=== PATIENT | female | born 1955 | race Caucasian/White ===

== ENCOUNTER → 2016-12-02 | Outpatient (CLI) | payer OTHER ==
[~2016-12-02] MED LIST: ASPEC325 PO; ATEN-173 PO; BUPR150T5 PO; BUSP15TA70 PO; CALC-279 PO; CHOL1000 PO; CLR10 PO; CYAN500T PO; FAMC1TAB PO; GABA-113 PO; IPRA1AER2 INH; LORA-741 PO; METH500T37 PO; MULTTAB PO; OMEP20CA59 PO; OXYC-57 PO; QUET1TAB7 PO; ROPI0.25 PO; SERT1TAB68 PO; SULF800T23 PO; SUMA50TA15 PO; VERA240T20 PO
--- NOTE | 2016-12-02 16:20 | MAMMOGRAPHY REPORT ---
BILATERAL DIGITAL SCREENING MAMMOGRAM WITH CAD: 12/02/2016 CLINICAL HISTORY: Routine screening. Patient has no complaints. TECHNIQUE: Current study was also evaluated with a Computer Aided Detection (CAD) system. Bilateral CC and MLO views were obtained. COMPARISON: Comparison is made to exams dated: 07/23/2014 mammogram, 08/16/2012 mammogram, 02/22/2011 ma mmogram, 03/06/2010 mammogram, 03/06/2010 ultrasound, and 02/19/2010 mammogram - [facility]. BREAST COMPOSITION: There are scattered areas of fibroglandular density in both breasts. FINDINGS: No suspicious masses, calcifications, or areas of architectural distortion are noted in ei ther breast. There has been no significant interval change compared to prior exams. Small cluster of calcifications in the left medial posterior breast is stable dating back to at least the 2007 exam. IMPRESSION: ACR BI-RADS CATEGORY 2: BENIGN There is no mammographic evidence of malignancy. A 1 year screening mammogram is recommended. The pa tient will receive written notification of the results. Approximately 10% of breast cancers are not detected with mammography. A negative mammographic report should not delay biopsy if a clinically suggestive mass is present. Grecia Jimenez M.D. /:12/02/2016 14:42:30 Executive Vice President Business Development: Mcihelle LOFTONR, M, [facility] letter sent: Normal 1/2 BI-RADS Code: ACR BI-RADS Category 2: Benign
== END | disposition home or self-care (01) ==
LOC: C.MAMM 13:57
PROVIDERS: ATTEND Nurse Practitioner Family
DX: Z12.31 Encounter for screening mammogram for malignant neoplasm of breast (principal)

== ENCOUNTER → 2017-03-22 | Outpatient (CLI) | payer OTHER | END | disposition home or self-care (01) | LOC: C.LAB1850 13:49 | PROVIDERS: ATTEND Internal Medicine Infectious Disease | DX: N39.0 Urinary tract infection, site not specified (principal) ==

== ENCOUNTER 2018-09-20 06:27 | Inpatient (IN) ==
--- NOTE | 2018-08-30 10:23 | PAT Medication Instructions ---
Medication Instructions Date of Service August 30, 2018 Home Medications acetaminophen [Tylenol] 325 mg PO BID PRN atenolol 12.5 mg PO QPM bupropion HCl 300 mg PO HS buspirone 15 mg PO TID calcium carbonate-vitamin D3 [Calcium 600 + D(3)] 1 cap PO QPM cholecalciferol (vitamin D3) [Vitamin D3] 1,000 unit PO HS cyanocobalamin (vitamin B-12) 500 mcg PO HS famciclovir 250 mg PO QAM ipratropium-albuterol [Combivent Respimat] 1 puff INHALATION Q4H PRN loratadine 10 mg PO QAM lorazepam 0.5 mg PO TID PRN methocarbamol 500 mg PO TID PRN multivitamin 1 tab PO QAM naproxen 500 mg PO BID olodaterol 2 inh INHALATION QAM omeprazole 20 mg PO BID oxycodone 5 mg PO BID PRN quetiapine [Seroquel] 100 mg PO HS ropinirole 0.25 mg PO HS PRN sertraline 50 mg PO QAM sulfamethoxazole-trimethoprim 1 tab PO BID sumatriptan succinate 100 mg PO UD PRN Continue as directed sulfamethoxazole-trimethoprim 1 tab PO BID famciclovir 250 mg PO QAM ASK your surgeon for instructions naproxen 500 mg PO BID STOP taking 24 hours before surgery ropinirole 0.25 mg PO HS PRN DO NOT take the morning of surgery loratadine 10 mg PO QAM methocarbamol 500 mg PO TID PRN multivitamin 1 tab PO QAM Take morning of surgery With a small sip of water, OTHERWISE NOTHING TO EAT OR DRINK AFTER MIDNIGHT: acetaminophen [Tylenol] 325 mg PO BID PRN (okay to take up to 4 hours prior to surgery if needed) buspirone 15 mg PO TID ipratropium-albuterol [Combivent Respimat] 1 puff INHALATION Q4H PRN (if needed) lorazepam 0.5 mg PO TID PRN (if needed) olodaterol 2 inh INHALATION QAM omeprazole 20 mg PO BID oxycodone 5 mg PO BID PRN (okay to take up to 4 hours prior to surgery if needed) sertraline 50 mg PO QAM sumatriptan succinate 100 mg PO UD PRN (if needed) Take evening before surgery acetaminophen [Tylenol] 325 mg PO BID PRN (if needed) atenolol 12.5 mg PO QPM bupropion HCl 300 mg PO HS buspirone 15 mg PO TID calcium carbonate-vitamin D3 [Calcium 600 + D(3)] 1 cap PO QPM cholecalciferol (vitamin D3) [Vitamin D3] 1,000 unit PO HS cyanocobalamin (vitamin B-12) 500 mcg PO HS ipratropium-albuterol [Combivent Respimat] 1 puff INHALATION Q4H PRN (if needed) lorazepam 0.5 mg PO TID PRN (if needed) methocarbamol 500 mg PO TID PRN (if needed) omeprazole 20 mg PO BID oxycodone 5 mg PO BID PRN (if needed) quetiapine [Seroquel] 100 mg PO HS Other Notes If you have any questions please call us at [phone] or [phone] or [phone] or [phone]
--- NOTE | 2018-08-30 13:59 | Anesthesiology Consultation ---
Date of Service August 30, 2018 Assessment & Plan (1) Encounter for pre-operative examination: PCP: 09/15/18: "medically acceptable risk for the proposed surgery. It is recommended that she had preoperative antibiotics secondary to her previous perispinal abscess." Surgeon aware of PCP recommendations. Chart Review Chart Review: Acceptable Risk for Surgery and Patient seen in Pre Admission Testing Teaching & Discussion Pre-Anesthesia Teaching/Discussion Notes: Instructed NPO after midnight before surgery,except medications with 15 cc of water. Medication instructions provided according to the PAT guidelines. History Surgery Operation Date: 09/20/18 09:00 Proposed Procedures p Right Reversed Total Shoulder Arthroplasty - Beni Zimmerman MD Height/Weight Height: 5 ft 2 in Weight: 72.4 kg Allergies Allergy/AdvReac Type Severity Reaction Status Date / Time codeine AdvReac Mild HEADACHE Verified 08/22/18 11:29 oats AdvReac Mild HEADACHE Verified 08/22/18 11:29 levofloxacin AdvReac Unknown DIFFUSE Verified 08/30/18 10:21 TENDONITIS Medications Home Medications Medication Instructions Recorded Confirmed Last Taken acetaminophen [Tylenol] 325 mg PO BID PRN 08/22/18 08/22/18 Unknown atenolol 12.5 mg PO QPM 08/22/18 08/22/18 Unknown bupropion HCl 300 mg PO HS 08/22/18 08/22/18 Unknown buspirone 15 mg PO TID 08/22/18 08/22/18 Unknown calcium carbonate-vitamin D3 1 cap PO QPM 08/22/18 08/22/18 Unknown [Calcium 600 + D(3)] cholecalciferol (vitamin D3) 1,000 unit PO HS 08/22/18 08/22/18 Unknown [Vitamin D3] cyanocobalamin (vitamin B-12) 500 mcg PO HS 08/22/18 08/22/18 Unknown famciclovir 250 mg PO QAM 08/22/18 08/22/18 Unknown ipratropium-albuterol [Combivent 1 puff INHALATION Q4H PRN 08/22/18 08/22/18 Unknown Respimat] loratadine 10 mg PO QAM 08/22/18 08/22/18 Unknown lorazepam 0.5 mg PO TID PRN 08/22/18 08/22/18 Unknown methocarbamol 500 mg PO TID PRN 08/22/18 08/22/18 Unknown multivitamin 1 tab PO QAM 08/22/18 08/22/18 Unknown naproxen 500 mg PO BID 08/22/18 08/22/18 Unknown olodaterol 2 inh INHALATION QAM 08/22/18 08/22/18 Unknown omeprazole 20 mg PO BID 08/22/18 08/22/18 Unknown oxycodone 5 mg PO BID PRN 08/22/18 08/22/18 Unknown quetiapine [Seroquel] 100 mg PO HS 08/22/18 08/22/18 Unknown ropinirole 0.25 mg PO HS PRN 08/22/18 08/22/18 Unknown sertraline 50 mg PO QAM 08/22/18 08/22/18 Unknown sulfamethoxazole-trimethoprim 1 tab PO BID 08/22/18 08/22/18 Unknown sumatriptan succinate 100 mg PO UD PRN 08/22/18 08/22/18 Unknown Past Medical History Medical History Abscess HX LUMBAR ABSCESS (5+ YEARS AGO) 2/2 INDWELLING HARDWARE S/P LUMBAR SURGERY; FOLLOWS WITH INFECTIOUS DISEASE- RECOMMEND CHRONIC LIFELONG SUPPRESSIVE THERAPY WITH BACTRIM; NO ACUTE ISSUES. Anxiety Cancer CERVICAL (1979) Chronic back pain LLE RADICULOPATHY Chronic obstructive pulmonary disease STABLE Cold sore FAMCICLOVIR Depression GERD (gastroesophageal reflux disease) CONTROLLED Hiatal hernia Migraine Osteoarthritis Post traumatic stress disorder Exercise / Class Metabolic Activity II 4-5 Yardwork/Stairs/Walk up hill Past Family History Family History Aunt Family history of diabetes mellitus Aunt Family history of diabetes mellitus Mother Family history of diabetes mellitus Past Surgical History Surgical History Fusion of spine X2 H/O abdominoplasty History of arthroscopy RIGHT SHOULDER History of cholecystectomy History of gastric bypass 2004 History of hysterectomy History of open reduction and internal fixation (ORIF) procedure RIGHT ANKLE Vocal cord polyp REMOVAL Past Anesthesia History No Hx of Anesthesia Complications and No Family Hx of Anesthesia Complications History of PONV No Hx of PONV and No Hx of Motion Sickness Social History Smoking Status: Former smoker Do You Dip or Chew Tobacco: No Smoking End Date: QUIT 2001 Hx Alcohol Use: No Hx Substance Use: No substance use type: prescription drug Review of Systems Patient denies chest pain, shortness of breath, dyspnea on exertion, cough, wheezing, palpitations. Physical Exam Vital Signs VITALS BP 112/59 P 63 TEMP 98.3 SP02 93%RA RESP 20 PHYSICAL Full neck and c-spine range of motion. Full TMJ range of motion. TMD 3 finger breaths Mallampati Score 3 Dentition: full dentures upper/lower Lungs: clear throughout to auscultation Cardiac: regular rate and rhythm, no murmurs noted Spine: normal Carotid arteries: negative bruit Extremities: no edema Testing Laboratory Results 08/30/18 08/30/18 08/30/18 14:25 14:25 14:25 PT 10.8 INR 1.1 APTT 25.8 Hemoglobin A1c 5.0 Urine Color Urine Appearance Urine pH Ur Specific [place] Urine Protein Urine Glucose (UA) Urine Ketones Urine Nitrite Ur Leukocyte Esterase Blood Type A Negative Antibody Screen NEGATIVE 08/30/18 Unknown PT INR APTT Hemoglobin A1c Urine Color Yellow Urine Appearance Clear Urine pH 7.0 Ur Specific [place] 1.013 Urine Protein Negative Urine Glucose (UA) Negative Urine Ketones Negative Urine Nitrite Negative Ur Leukocyte Esterase Negative Blood Type Antibody Screen 08/23/18 WBC 3.9 H/H 12.4/37.9 PLT 203 NA 134 K 4.7 CL 102 CO2 23 BUN 15 CREATININE 1.2 GLUCOSE 106 Electrocardiogram Date: 04/17/18 SB at 55bpm. Otherwise "normal" EKG. Chest X-Ray Date: 08/30/18 A moderate sized hiatal hernia is noted. Old right rib fractures are noted. Appearance of the chest is unchanged. No acute cardiopulmonary findings. Stress Test Date: 09/13/18 Type: nuclear (Lexiscan) Lexiscan nuclear cardiac stress test negative for ischemia. Gated SPECT imaging reveals normal myocardial thickening and wall motion. LVEF >70%. EKG response negative for ischemia. 65% MPHR.
--- NOTE | 2018-08-30 15:02 | XRay Report ---
XR chest Pre-admission PA/Lat CLINICAL HISTORY: Preoperative evaluation. COMPARISON STUDY: Chest radiograph November 20, 2014. FINDINGS: A moderate sized hiatal hernia is noted. Cardiac size is normal. Mediastinal contours are o therwise normal. There is no pneumothorax or pleural effusion. There is no consolidation or evidence for pulmonary edema. Old right rib fractures are noted. Appearance of the chest is unchanged. IMPRESSION: 1. No acute cardiopulmonary findings. 2. Hiatal hernia. Electronically signed by: Tom Munoz M.D. 08/30/2018 3:00 PM
[2018-08-30 15:43] LABS: Appearance Urine Clear (Clear); Bilirubin Urine Negative (Negative); Blood Urine Negative (Negative); Color Urine Yellow; Glucose Urine UA Negative (Negative); Ketones Urine Negative (Negative); Leukocyte Esterase Urine Negative (Negative); Nitrite Urine Negative (Negative); Protein Urine Negative (Negative); Specific Gravity Urine 1.013 (1.000-1.030); Urobilinogen Urine Negative (Negative)
[2018-08-30 15:49] LABS: INR 1.1 (0.9-1.1); Partial Thromboplastin Time 25.8 Seconds (21.0-31.0); Prothrombin Time 10.8 Seconds (9.0-12.0)
[2018-08-31 05:44] LABS: Estimated Average Glucose 97 mg/dl
--- NOTE | 2018-09-19 13:11 | History and Physical Report ---
DATE OF ADMISSION: 09/20/2018 CHIEF COMPLAINT: Chronic right shoulder pain and weakness. HISTORY OF PRESENT ILLNESS: This is a 63-year-old female patient of Dr. Zimmerman'julius complaining of chronic right shoulder pain and weakness, longstanding, now progressively getting worse. She has failed conservative treatment including physical therapy, intraarticular injections and 2 arthroscopic procedures. She has been diagnosed with rotator cuff arthropathy and wished to proceed with a right reversed total shoulder arthroplasty. PAST MEDICAL HISTORY: Hypertension, COPD, anxiety, peripheral neuropathy, osteoarthritis, sciatica, hiatal hernia. SOCIAL HISTORY: A lifelong smoker, quit in 2003. Nondrinker. FAMILY HISTORY: Noncontributory. REVIEW OF SYSTEMS: Chronic right shoulder pain and weakness. Otherwise, denies any shortness of breath, chest pain, nausea, vomiting or any other joint complaints. PAST SURGICAL HISTORY: Gastric bypass surgery, tonsillectomy, hysterectomy, polyp removal on the lung, shoulder surgery, vocal cord polyp removal, carpal tunnel surgery, cholecystectomy, ankle surgery, abdominal surgery. MEDICATIONS: 1. Atenolol 25 mg daily. 2. Multiple vitamin daily. 3. Lisinopril 5 mg daily. 4. Loratadine 10 mg daily. 5. Topicaine 5% topical gel apply to affected area every 4 hours as needed. 6. Sertraline 100 mg one-half tablet daily. 7. Ropinirole 0.25 mg 1 daily at night. 8. Quetiapine 100 mg daily. 9. Oxycodone 5 mg as needed. 10. Omeprazole 20 mg twice daily. 11. Melatonin 3 mg at bedtime. 12. Famciclovir 250 mg daily. 13. Diphenhydramine 25 mg daily. 14. Vitamin B12 daily 500 mcg. 15. Buspirone 15 mg 3 times daily. 16. Bactrim every 12 hours. 17. Striverdi Respimat 2.5 mcg per actuation 2 puffs daily. 18. Combivent Respimat 20 mcg/100 mcg actuation 1 puff every 6 hours per day. 19. Bupropion 100 mg twice daily. 20. Methocarbamol 500 mg 3 times daily. 21. Ativan 0.5 mg 3 times daily as needed. 22. Sumatriptan 100 mg as needed for migraines. ALLERGIES: Will be provided on admission. PHYSICAL EXAMINATION: GENERAL: Well-developed, well-nourished 63-year-old female in no acute distress. She is alert and oriented x3 and pleasant. HEENT: Normocephalic, atraumatic. Extraocular motions are intact. Pupils were equal and reactive to light. HEART: Regular rate and rhythm, no murmurs. LUNGS: Clear. ABDOMEN: Soft, nontender, bowel sounds present. EXTREMITIES: Right shoulder active range of motion 0-100, passively to 170. She has crepitation and pain with passive range of motion. She has 2/5 strength globally. NEUROLOGIC: Neurovascularly, she is intact in her right upper extremity. DIAGNOSES: Right shoulder rotator cuff arthropathy, hypertension, chronic obstructive pulmonary disease, anxiety, peripheral neuropathy, osteoarthritis, sciatica, hiatal hernia. PLAN: The patient was advised of her diagnoses. Indications, risks, benefits, and postop course have all been reviewed. The patient wished to proceed with a right reversed total shoulder arthroplasty. Necessary consent forms and preoperative testing and clearances will be obtained.
[~2018-09-20 06:27] MED LIST changes: +ACETAMINOPHEN 500 MG TAB PO SCH; -ASPEC325 PO; -ATEN-173 PO; -BUPR150T5 PO; -BUSP15TA70 PO; -CALC-279 PO; +CEFAZOLIN 1000MG 1,000 MG/7.5 ML SYR IV SCH; -CHOL1000 PO; -CLR10 PO; -CYAN500T PO; +CeleBREX 200 MG CAP PO SCH; -FAMC1TAB PO; +FAMOTIDINE 20 MG TAB PO SCH; -GABA-113 PO; +GABAPENTIN 300 MG CAP PO SCH; -IPRA1AER2 INH; -LORA-741 PO; +LR 15ML/HR IV SCH; -METH500T37 PO; +METOCLOPRAMIDE HCL 10 MG TABLET PO SCH; -MULTTAB PO; -OMEP20CA59 PO; -OXYC-57 PO; -QUET1TAB7 PO; -ROPI0.25 PO; -SERT1TAB68 PO; -SULF800T23 PO; -SUMA50TA15 PO; +VANCOMYCIN HCL 1,000 MG/270 ML BAG IV SCH; -VERA240T20 PO; +dexAMETHasone 4 MG TAB PO SCH
[2018-09-20] MEDS ORDERED: ROPIVACAINE 0.5% 5 MG/ML 30 ML VIAL ONE (06:33)
--- NOTE | 2018-09-20 07:49 | History & Physical Bridge Note ---
Date of Service September 20, 2018 History & Physical Bridge Note I have examined the patient, reviewed the History & Physical and in the interval since the performance of the History & Physical I have noted the following changes of clinical significance: no changes noted
[2018-09-20] MEDS ORDERED: fentaNYL citrate 100 MCG/2 ML VIAL ONE ×2 (08:29→11:17)
[2018-09-20] MEDS ORDERED: MIDAZOLAM HCL 1 MG/ML 2ML VIAL ONE (08:29)
[2018-09-20] MEDS ORDERED: ePHEDrine sulfate 50 MG/ML AMP IV PRN (08:30)
[2018-09-20] MEDS ORDERED: ATROPINE SULFATE 0.1 MG/ML 10ML SYR IV PRN (08:30)
[2018-09-20] MEDS ORDERED: ONDANSETRON INJ 2 MG/ML 2 ML VIAL IV PRN ×2 (08:30→12:47)
[2018-09-20] MEDS ORDERED: fentaNYL citrate 100 MCG/2 ML VIAL IV PRN (08:30)
[2018-09-20] MEDS ORDERED: BACITRACIN INJ 50,000 UNIT VIAL ONE (08:40)
[2018-09-20] MEDS ORDERED: NEOSTIGMINE METHYLSULFATE 5 MG/5 ML SYR ONE (10:44)
[2018-09-20] MEDS ORDERED: GLYCOPYRROLATE 0.2 MG/ML VIAL ONE (10:44)
[2018-09-20] MEDS ORDERED: PROPOFOL IV EMULSION 10 MG/ML 20 ML VIAL IV ONE (10:44)
[2018-09-20] MEDS ORDERED: DEXAMETHASONE SOD INJ 4 MG/ML VIAL ONE (10:44)
[2018-09-20] MEDS ORDERED: ROCURONIUM BROMIDE 10 MG/ML 5 ML VIAL ONE (10:44)
[2018-09-20] MEDS ORDERED: ONDANSETRON INJ 2 MG/ML 2 ML VIAL ONE (10:44)
[2018-09-20] MEDS ORDERED: LIDOCAINE HCL 2% 2 ML VIAL/AMP(20MG/ML) INFIL ONE (10:44)
[2018-09-20] MEDS ORDERED: ePHEDrine sulfate 50 MG/ML AMP ONE (10:44)
--- NOTE | 2018-09-20 11:30 | Post Operative Brief Note ---
Immediate Post Op Note v1 Date of Surgery September 20, 2018 Pre & Post Diagnosis Operation Date: 09/20/18 08:55 Pre-Op Diagnosis: Right shoulder rotator cuff arthropathy,end stage glenohumeral djd Post-Op Diagnosis: Right shoulder rotator cuff arthropathy,end stage glenohumeral djd Procedure Operation Date: 09/20/18 08:55 Actual Procedures p Right Reverse Total Shoulder Arthroplasty(Right) - Beni Zimmerman MD Surgeon Beni Zimmerman MD [employer] Inspector Jey SHERMAN Estimated Blood Loss 20 Findings Consistent with Post-Op Diagnosis Specimens HUMERAL HEAD Drains Hemovac Drain Anesthesia Type General Regional Complications none Disposition Accompanied Patient To Recovery: No Disposition: Recovery Room Overlapping Procedure I was present for: the critical portions of procedure.
--- NOTE | 2018-09-20 12:30 | XRay Report ---
XR shoulder RT min 2V routine HISTORY: 63 years-old Female Post shoulder surgery right shoulder total joint arthroplasty. History of degenerative joint disease. COMPARISON: Chest radiograph 11/20/2014 TECHNIQUE: 2 views of the right shoulder FINDINGS: Reverse right shoulder total joint arthroplasty demonstrates satisfactory alignment without acute fra cture or retained foreign body. Overlying skin janelle are noted along with expected postsurgical sof t tissue swelling and deep tissue air and surgical drainage catheter. IMPRESSION: Satisfactory alignment of the reverse right shoulder total joint arthroplasty. The above report was generated using voice recognition software. It may contain grammatical, syntax o r spelling errors. Electronically signed by: Hang Brown M.D. 09/20/2018 12:29 PM
--- NOTE | 2018-09-20 12:41 | Anesthesiology Progress Note ---
Date of Service September 20, 2018 Anesthesia Post Procedure Vital Signs Vital Signs: Temp Pulse Resp BP Pulse Ox 09/20/18 12:15 97.7 F 80 16 113/63 95 09/20/18 12:05 81 15 102/55 L 95 09/20/18 11:55 77 15 108/56 L 100 09/20/18 11:45 78 15 126/63 99 09/20/18 11:37 97.3 F L 88 14 121/70 98 09/20/18 07:07 98.1 F 64 20 112/69 95 Pain Intensity Right Shoulder: Pain Intensity: 0 Transfer of Care Handoff Completed per policy Notes Mental Status: alert / awake / arousable and participated in evaluation Patient Amnestic to Procedure: Yes Nausea / Vomiting: adequately controlled Pain: adequately controlled Airway Patency, RR, SpO2: stable & adequate BP & HR: stable & adequate Hydration State: stable & adequate Anesthetic Complications: no major complications apparent and Pt Satisfied with anesthetic care
[2018-09-20] MEDS ORDERED: SODIUM CHLORIDE 0.9% 1000ML 1,000 ML IV SCH (12:47)
[2018-09-20] MEDS ORDERED: NALOXONE HCL 0.4 MG/1 ML VIAL/CARP IV PRN (12:47)
[2018-09-20] MEDS ORDERED: IPRATROPIUM BROMIDE/ALBUTEROL respimat INH INH PRN (12:47)
[2018-09-20] MEDS ORDERED: METHOCARBAMOL 500 MG TABLET PO PRN (12:47)
[2018-09-20] MEDS ORDERED: ROPINIROLE HCL 0.25 MG TABLET PO PRN (12:47)
[2018-09-20] MEDS ORDERED: BISACODYL 10 MG SUPP PR PRN (12:47)
[2018-09-20] MEDS ORDERED: MAGNESIUM HYDROXIDE SUSP 30 ML UDC PO PRN (12:47)
[2018-09-20] MEDS ORDERED: SUMAtriptan succinate 100 MG TAB PO PRN (12:47)
[2018-09-20] MEDS: BUSPIRONE HCL 7.5 MG TAB PO SCH ×2 (14:17→21:08)
[2018-09-20] MEDS: ACETAMINOPHEN 500 MG TAB PO SCH ×2 (14:17→21:10)
--- NOTE | 2018-09-20 14:25 | Operative Report ---
Post Operative Report Pre & Post Diagnosis Operation Date: 09/20/18 08:55 Pre-Op Diagnosis: Right shoulder rotator cuff arthropathy, end-stage glenohumeral osteoarthritis Post-Op Diagnosis: Right shoulder rotator cuff arthropathy, end-stage glenohumeral osteoarthritis Procedure Operation Date: 09/20/18 08:55 Actual Procedures p Right Reverse Total Shoulder Arthroplasty(Right) - Beni Zimmerman MD Surgeon Beni Zimmerman MD Scout Sniper Jey SHERMAN Estimated Blood Loss 20 Findings Consistent with Post-Op Diagnosis Specimens Humeral head Drains 2 Hemovac Anesthesia Type General Regional Complications none Disposition Accompanied Patient To Recovery: No Disposition: Recovery Room Indications 63-year-old female with end-stage osteoarthritis of her right shoulder. She had prior arthroscopic decompression procedure and extensive debridement at which time she was noted to have advanced grade 4 DJD both sides of the joint. She also had partial tearing with tendinopathy of subscapularis supraspinatus and infraspinatus. Though she did have a complete full-thickness tear she had marked tendinopathy. She had some improvement from the arthroscopic debridement but still had disabling pain from the glenohumeral arthritis now presents for replacement surgery. Description of Procedure The patient was taken to the operating room and anesthetized under regional block and general anesthetic. The patient was positioned on the operating table in a 30 beachchair position with a towel roll under the medial border of the r ight scapula. The arm was draped free to be able to manipulate the shoulder as needed. The right upper extremity was prepped and draped in usual sterile fashion. Exam demonstrated forward elevation 160 degrees, external rotation 30 degrees, abduction 90 degrees, internal rotation 60 degrees, extension 30 degrees, decreased combined abduction external rotation. An anterior deltopectoral approach was performed. A longitudinal incision was made in the deltopectoral interval. The skin was incised sharply. Subcutaneous flaps were elevated off the fascia. The cephalic vein was dissected out and retracted lateral with the deltoid. The clavipectoral fascia was divided at the lateral margin of the conjoined tendon and extended up to the CA ligament. The following findings were noted: On the undersurface rotator cuff was intact of the subscapularis and anterior supraspinatus and there was tendinopathy of the supraspinatus with thinning and deterioration of the tendon and there was a sp lit between the supraspinatus and infraspinatus posteriorly. The biceps tendon was retracted from prior tenotomy. There was residual biceps tendon sheath and biceps tenosynovitis which was resected. The subscapularis tendon was taken down off the lesser tuberosity using a subperiosteal dissection. A #1 Vicryl traction suture was placed into the free end of the subscapularis tendon and capsule. The subscapular muscle fibers were split longitudinally at the level of the circumflex vessels. The circumflex vessels were identified and tied off with silk ties and divided laterally. A Kitner elevator was used to free up the inferior fibers of the subscapularis off of the capsule. The axillary nerve was identified with a tug test and protected with a blunt Tarsha retractor between the nerve and the capsule. The subscapularis tendon was then taken down off of the lesser tuberosity subperiosteally and subperiosteal dissection was performed along the neck of the humerus as the arm is gradually actually rotated exposing the humeral head. Retractors were readjusted and the inferior osteophytes were all resected using an artist chisel. The articular surface of the humeral head was eburnated bone. A Aldana elevator was used to assist in releasing the capsule of the neck of the humerus. The capsule was divided with Stewart scissors down to the glenoid released off the anterior glenoid and the rotator interval was released to meet the capsular release and a 360 release of the subscapularis was accomplished. A Fukuda retractor was placed into the joint retracting the humeral head posterior. Glenoid findings demonstrated grade 4 DJD of the superior posterior glenoid with still some articular cartilage inferior and degenerative labrum.. The labrum and biceps tendon was resected. an anterior- inferior and posterior inferior capsular release were performed with electrocautery and a Aldana elevator on bone with the axillary nerve protected inferiorly by the retractor. Attention was then taken to the humeral preparation. The cutting guide was placed into the humeral head. It was positioned at 20 of retroversion. Oscillating saw was used to resect the humeral head giving the cut above the level of the posterior rotator cuff insertion site. The humerus was then prepared for the stem. I used the ascend flex stem from [employer]. The sizing broaches were used followed by trial broaches up to a size 5B long which had the appropriate fit and fill. The appropriate sized cut protector was placed. The humerus was then retracted posterior to the glenoid. The glenoid was sized for a 25 baseplate. The guide for the baseplate was positioned in a 10 inferior tilt and the central drill hole was made. The reamer for the 25 baseplate was used. The central drill was widened for the peg. The 25 aequalis VICK-coated baseplate was impacted into position. The base plate was transfixed with superior and inferior locking screws and anterior and posterior compression screws with stable fixation. The fan reamer was used for the 36 millimeter glenoid sphere. After irrigation the 36 glenoid sphere was impacted onto the baseplate and the screw was tightened. Attention was taken back to the humerus. The cut protector was removed and the +0 high offset humeral tray trial was assembled to the trial stem rotated appropriately to get bony coverage and then screwed in position. A trial reduction was performed. A +6 trial insert demonstrated good stability and no shuck. The trials were removed. 3 drill holes are made into the harder bone in the bicipital groove area and 3 #5 FiberWire sutures were placed transosseously. The canal was irrigated with antibiotic solution with bacitracin. The final component was assembled. The final component was humeral stem 5B long with +0 high offset humeral tray and 36+6 humeral polyethylene insert. This was then impacted into the humerus with a tight press-fit. It was reduced to the glenoid sphere. Stability was verified. Subscapularis was repaired with the #5 FiberWire sutures using Warren-Ryan suture technique. Lateral row soft tissue repair was performed with #2 FiberWire [id number] sutures. The arm was taken through a range of motion which demonstrated 135 degrees forward flexion 90 degrees of abduction external rotation of 30 degrees without tension on repair. The implant was stable through the range of motion tested. The wound was copiously irrigated. 2 Hemovac drains were placed. The deltopectoral interval was closed with [id number] #1 Vicryl sutures. The subcutaneous tissues were closed with 2-0 Vicryl sutures. The skin was closed with janelle. Sterile dressings were applied and a shoulder immobilizer. Jey SHERMAN my physician shop assistant assisted in the procedure to the entire procedure including patient positioning arm positioning prepping and draping soft tissue retraction instrument management suture management and performed the subcutaneous and skin closure and will participate in the postoperative care of the patient. I attest to the content of the Intraoperative Record and any orders documented therein. Any exceptions are noted below.
--- NOTE | 2018-09-20 16:22 | History & Physical Report ---
Date of Service September 20, 2018 Assessment & Plan (1) Right shoulder pain: s/p R reverse shoulder with Dr. Zimmerman on 09/20 As per ortho (2) COPD (chronic obstructive pulmonary disease): continue home meds (3) PTSD (post-traumatic stress disorder): with anx/dep also continue home meds (4) Migraine: continue home meds Ice pack PRN (5) GERD (gastroesophageal reflux disease): with hiatal hernia continue home meds (6) Chronic antibiotic suppression: Bactrim BID Follows with Dr. 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 Zimmerman. Pt is doing well post-op. Tolerating PO without issue. Pt denies fever, SOB, chest pain, abd pain, n/v/c/d, LE pain. She does state that she occasionally gets LE swelling, but this not present today. Pt states she frequently gets migraines when in the hospital and is requesting an ice pack if this occurs. Allergies Allergy/AdvReac Type Severity Reaction Status Date / Time codeine AdvReac Mild HEADACHE Verified 09/20/18 07:00 levofloxacin AdvReac Mild DIFFUSE Verified 09/20/18 13:51 TENDONITIS oats AdvReac Mild HEADACHE Verified 09/20/18 07:00 Home Medications Home Medications Medication Instructions Recorded Confirmed Type acetaminophen [Tylenol] 325 mg PO BID PRN 08/22/18 09/20/18 History atenolol 12.5 mg PO QPM 08/22/18 09/20/18 History bupropion HCl 300 mg PO HS 08/22/18 09/20/18 History buspirone 15 mg PO TID 08/22/18 09/20/18 History calcium carbonate-vitamin D3 1 cap PO QPM 08/22/18 09/20/18 History [Calcium 600 + D(3)] cholecalciferol (vitamin D3) 1,000 unit PO HS 08/22/18 09/20/18 History [Vitamin D3] cyanocobalamin (vitamin B-12) 500 mcg PO HS 08/22/18 09/20/18 History famciclovir 250 mg PO QAM 08/22/18 09/20/18 History ipratropium-albuterol [Combivent 1 puff INHALATION Q4H PRN 08/22/18 09/20/18 History Respimat] loratadine 10 mg PO QAM 08/22/18 09/20/18 History lorazepam 0.5 mg PO TID PRN 08/22/18 09/20/18 History methocarbamol 500 mg PO TID PRN 08/22/18 09/20/18 History multivitamin 1 tab PO QAM 08/22/18 09/20/18 History naproxen 500 mg PO BID 08/22/18 09/20/18 History olodaterol 2 inh INHALATION QAM 08/22/18 09/20/18 History omeprazole 20 mg PO BID 08/22/18 09/20/18 History oxycodone 5 mg PO BID PRN 08/22/18 09/20/18 History quetiapine [Seroquel] 100 mg PO HS 08/22/18 09/20/18 History ropinirole 0.25 mg PO HS PRN 08/22/18 09/20/18 History sertraline 50 mg PO QAM 08/22/18 09/20/18 History sulfamethoxazole-trimethoprim 1 tab PO BID 08/22/18 09/20/18 History sumatriptan succinate 100 mg PO UD PRN 08/22/18 09/20/18 History Past Med/Surg History Medical History Anxiety Cancer CERVICAL (1979) Chronic back pain LLE RADICULOPATHY Chronic obstructive pulmonary disease STABLE Depression GERD (gastroesophageal reflux disease) CONTROLLED Hiatal hernia Migraine Osteoarthritis Post traumatic stress disorder Abscess HX LUMBAR ABSCESS (5+ YEARS AGO) 2/2 INDWELLING HARDWARE S/P LUMBAR SURGERY; FOLLOWS WITH INFECTIOUS DISEASE- RECOMMEND CHRONIC LIFELONG SUPPRESSIVE THERAPY WITH BACTRIM; NO ACUTE ISSUES. 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 Beliefs That Will Affect Care: None Current Living Situation: Spouse Other Information That Helps Us Care for You: No Feels Safe at Home: Yes Safety Concerns: Feels Safe At This Time Smoking Status: Former smoker Do You Dip or Chew Tobacco: No Smoking End Date: QUIT 2001 Second Hand Exposure: No Hx Alcohol Use: No Hx Substance Use: No Review of Systems Review of Systems: Pertinent positives and negatives reviewed in HPI--all ot hers negative Physical Exam Constitutional: WD/WN, vitals as above Eyes: normal visual russo by confrontation and + anicteric sclerae Neck: normal visual inspection and trachea midline Respiratory: normal respiratory effort, lungs clear to auscultation Cardiovascular: Rate/Rhythm: regular rate and regular rhythm Gastrointestinal (Abdomen): Inspection/Auscultation: abdomen not distended Percussion/Palpation: abdomen soft; abdomen nontender Musculoskeletal: Head/Neck/Chest: normocephalic and head atraumatic negative for edema, peripheral pulses intact Skin: no rashes, warm and dry Neurologic: awake; not confused Speech / Cognition: normal speech Psychiatric: A+Ox3, euthymic affect Results & Data Vital Signs (Past 12 Hours) Vital Signs Temp Pulse Resp BP Pulse Ox 09/20/18 15:25 77 18 104/57 L 94 09/20/18 14:22 36.6 C 83 20 108/56 L 93 09/20/18 13:27 36.8 C 83 20 110/74 91 09/20/18 13:05 36.8 C 73 15 111/66 93 09/20/18 12:35 36.9 C 76 16 102/61 96 09/20/18 12:15 36.5 C 80 16 113/63 95 09/20/18 12:05 81 15 102/55 L 95 09/20/18 11:55 77 15 108/56 L 100 09/20/18 11:45 78 15 126/63 99 09/20/18 11:37 36.3 C L 88 14 121/70 98 09/20/18 07:07 36.7 C 64 20 112/69 95 PG Care Time/CCT Total # of Minutes Spent Total Time Spent with Patient: Total time spent is greater than 50% in coordination of care (as documented) at patient's floor/unit and/or counseling patient:
[2018-09-20] MEDS: CEFAZOLIN 1000MG 1,000 MG/7.5 ML SYR IV SCH (19:32)
[2018-09-20] MEDS: ASPIRIN 81 MG ECTAB PO SCH (21:09)
[2018-09-20] MEDS: PANTOprazole 40 MG TAB PO SCH (21:09)
[2018-09-20] MEDS: SENNA 8.6 MG TAB PO SCH (21:09)
[2018-09-20] MEDS: DOCUSATE SODIUM 100 MG CAP PO SCH (21:09)
[2018-09-20] MEDS: CALCIUM 600MG + VIT D 400 IU TAB PO SCH (21:09)
[2018-09-20] MEDS: ATENOLOL 25 MG TABLET PO SCH (21:10)
[2018-09-20] MEDS: CHOLECALCIFEROL 1,000 UNITS TAB PO SCH (21:10)
[2018-09-20] MEDS: CYANOCOBALAMIN 500 MCG TABLET (VITAMIN B-12) PO SCH (21:10)
[2018-09-20] MEDS: BuPROPion XL 300 MG TABCR PO SCH (21:10)
[2018-09-20] MEDS: QUETIAPINE FUMARATE 100 MG TABLET PO SCH (21:10)
[2018-09-21] MEDS: CEFAZOLIN 1000MG 1,000 MG/7.5 ML SYR IV SCH (02:06)
[2018-09-21] MEDS: OXYCODONE HCL IR 5 MG TAB (IMMEDIATE RELEASE) PO PRN ×5 (02:17→19:51)
[2018-09-21] MEDS: HYDROmorphone INJ 0.5 MG/0.5 ML SYR IV PRN ×5 (04:31→23:33)
[2018-09-21] MEDS: ACETAMINOPHEN 500 MG TAB PO SCH ×3 (05:27→21:08)
[2018-09-21 06:13] LABS: Basophils # (auto) 0.02 K/uL (0-0.2); Basophils % (auto) 0.3 %; Eosinophils # (auto) 0.05 K/uL (0-0.5); Eosinophils % (auto) 0.7 %; Hematocrit (blood only) 29.8 % (37-47); Hemoglobin 10.3 g/dL (12.0-16.0); Immature Granulocytes # (auto) 0.02 K/uL (0.00-0.02); Immature Granulocytes % (auto) 0.3 %; Lymphocytes # (auto) 1.68 K/uL (1.2-3.4); Lymphocytes % (auto) 22.9 %; Mean Corpuscular Hgb Conc 34.6 g/dL (32-36); Mean Corpuscular Volume 92.5 fL (80-100); Mean Platelet Volume 9.8 fL (7.4-10.4); Monocytes # (auto) 0.88 K/uL (0.11-0.59); Neutrophils % (auto) 63.8 %; Platelet Count 141 K/uL (130-400); RDW Coefficient of Variation 12.7 % (11.5-14.5); RDW Standard Deviation 43.4 fL (36.4-46.3); Red Blood Count 3.22 M/uL (4.2-5.4); White Blood Count 7.35 K/uL (4.8-10.8)
[2018-09-21 06:50] LABS: BUN Creatinine Ratio 9.9 (10-20); Calcium 8.1 mg/dl (8.5-10.1); Creatinine Clr Calc Pharmacy 46.2 ml/min; Est GFR (African American) 59.7; Est GFR (Non-African American) 51.5; Potassium 4.1 mmol/L (3.5-5.1)
--- NOTE | 2018-09-21 07:51 | Orthopedic Progress Note ---
Date of Service September 21, 2018 Assessment & Plan (1) S/p reverse total shoulder arthroplasty: Patient is POD #1 from right reverse total shoulder arthroplasty. -Pain management -DVT prophylaxisaspirin, SCDs -PT/OT -A.m. labshemoglobin 10.3 this morning down from 12.6 on preop labs. -Discharge planninghome when stable pain is better controlled. Likely tomorrow. Subjective Patient is POD #1 from right reverse total shoulder. Patient has complained of a lot of pain this morning. Block wore off overnight. Denies any other complaints. No chest pain shortness of breath dizziness nausea vomiting diarrhea. Review of Systems Review of Systems: All systems reviewed & are unremarkable except as noted in HPI & below Physical Exam Physical Exam: Dressing is clean dry and intact. Hemovac in place. 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 Patient is distally neurovascularly intact. Results & Data Vital Signs (Past 12 Hours) Vital Signs Temp Pulse Resp BP Pulse Ox 09/21/18 07:23 36.8 C 59 L 18 115/67 94 09/21/18 03:15 36.8 C 64 18 102/62 97 09/20/18 23:20 36.9 C 66 16 99/58 L 95
[2018-09-21] MEDS ORDERED: MULTIVITAMIN TAB PO SCH (09:00)
[2018-09-21] MEDS ORDERED: FAMCICLOVIR 250 MG PO SCH (09:00)
[2018-09-21] MEDS ORDERED: OLODATEROL INH SCH (09:00)
[2018-09-21] MEDS: SERTRALINE HCL 50 MG TABLET PO SCH (09:50)
[2018-09-21] MEDS: DOCUSATE SODIUM 100 MG CAP PO SCH ×2 (09:50→21:09)
[2018-09-21] MEDS: MULTIVITAMIN TAB PO SCH (09:50)
[2018-09-21] MEDS: LORATADINE 10 MG TAB PO SCH (09:50)
[2018-09-21] MEDS: FAMCICLOVIR 250 MG PO SCH (09:51)
[2018-09-21] MEDS: ASPIRIN 81 MG ECTAB PO SCH ×2 (09:51→21:09)
[2018-09-21] MEDS: BUSPIRONE HCL 7.5 MG TAB PO SCH ×3 (09:51→21:09)
[2018-09-21] MEDS: PANTOprazole 40 MG TAB PO SCH ×2 (09:52→21:08)
[2018-09-21] MEDS: LORazepam 0.5 MG TAB PO PRN ×2 (12:48→19:35)
--- NOTE | 2018-09-21 13:56 | Hospitalist Progress Note ---
Date of Service September 21, 2018 Assessment & Plan (1) Right shoulder pain: - S/p right reverse total shoulder on 09/20/18, POD#1. - Pain control per primary team. - DVT ppx with Aspirin 81 mg BID. - PT/OT evaluation. - Monitor CBC daily -- trending down, likely related to acute blood loss. (2) COPD (chronic obstructive pulmonary disease): - Continue home Combivent q4hr prn. (3) PTSD (post-traumatic stress disorder): - With anxiety/depression -- continue home Welbutrin, Seroquel, Buspar and Zoloft as prescribed. (4) Migraine: - Continue home Imitrex prn. (5) GERD (gastroesophageal reflux disease): - PPI BID. (6) Chronic antibiotic suppression: - H/o lumbar abscess >25 years ago 2/2 indwelling hardware following lumbar surgery. - Follows with Dr. Miles; will need to continue daily Bactrim -- holding for now in setting of pre-op abx, will likely resume on 09/22/18. (7) Cancer: - Hx of cervical and uterine cancer, s/p hysterectomy in 1979. (8) HTN (hypertension): - Continue Atenolol as prescribed. (9) Primary HSV infection of mouth: - On ppx Famciclovir, continue as prescribed. - No evidence of acute flare. (10) DVT prophylaxis: - ASA 81 mg BID. Dispo: Will continue to follow, please call with any questions. Supervising Physician Co-Signing Physician Notes PA Supervision Note: I did not personally see or examine the patient today, but I verified all kearns points of WHIT Yanes's assessment and plan with the following exceptions/additions: None Subjective Pt. complains of nausea this morning - she was able to take PO meds after anti- emetic. Is passing gas, no BM yet. Has moderate shoulder pain, using meds prn. Review of Systems Review of Systems: All systems reviewed & are unremarkable except as noted in HPI & below Constitutional: no fever, no chills, no fatigue and no weakness Respiratory: no cough, no dyspnea and no dyspnea on exertion Cardiovascular: no chest pain, no palpitations and no edema Gastrointestinal: + nausea and + constipation; no abdominal pain and no vomiting Genitourinary: no difficulty urinating Musculoskeletal: + joint pain; no back pain Integumentary: no non-healing lesions Physical Exam Physical Exam: General: Resting comfortably in no apparent distress HEENT: NC/AT; PERRLA with EOMI; Evans conjunctiva, MMM. No erythema of posterior pharynx Neck: Supple and nontender Cardiac: RRR Lungs: CTA bilaterally Abdomen: Bowel normoactive X 4; Nontender to palpation Extremities: Warm. No edema present Neuro: No focal weakness Skin: No rash Results & Data Vital Signs (Past 12 Hours) Vital Signs Temp Pulse Resp BP Pulse Ox 09/21/18 12:44 92 09/21/18 07:23 36.8 C 59 L 18 115/67 94 09/21/18 03:15 36.8 C 64 18 102/62 97 Laboratory Results 09/21/18 09/21/18 Range/Units 05:39 05:39 WBC 7.35 (4.8-10.8) K/uL RBC 3.22 L (4.2-5.4) M/uL Hgb 10.3 L (12.0-16.0) g/dL Hct 29.8 L (37-47) % MCV 92.5 (80-100) fL MCH 32.0 (25-34) pg MCHC 34.6 (32-36) g/dL RDW Std Deviation 43.4 (36.4-46.3) fL RDW Coeff of Cha 12.7 (11.5-14.5) % Plt Count 141 (130-400) K/uL MPV 9.8 (7.4-10.4) fL Immature Gran % (Auto) 0.3 % Neut % (Auto) 63.8 % Lymph % (Auto) 22.9 % [place] % (Auto) 12.0 % Eos % (Auto) 0.7 % Baso % (Auto) 0.3 % Immature Gran # (Auto) 0.02 (0.00-0.02) K/uL Neut # (Auto) 4.70 (1.4-6.5) K/uL Lymph # (Auto) 1.68 (1.2-3.4) K/uL [place] # (Auto) 0.88 H (0.11-0.59) K/uL Eos # (Auto) 0.05 (0-0.5) K/uL Baso # (Auto) 0.02 (0-0.2) K/uL Sodium 137 (136-145) mmol/L Potassium 4.1 (3.5-5.1) mmol/L Chloride 105 (98-107) mmol/L Carbon Dioxide 24 (21-32) mmol/L Anion Gap 8.0 (3-11) BUN 11 (7-18) mg/dl Creatinine 1.12 (0.6-1.2) mg/dl Est Cr Clr Drug Dosing 46.2 ml/min Est GFR ( Amer) 59.7 Est GFR (Non-Af Amer) 51.5 BUN/Creatinine Ratio 9.9 L (10-20) Glucose 108 H (70-99) mg/dl Calcium 8.1 L (8.5-10.1) mg/dl PG Care Time/CCT Total # of Minutes Spent Total Time Spent with Patient: Total time spent is greater than 50% in coordination of care (as documented) at patient's floor/unit and/or counseling patient:
[2018-09-21] MEDS: ATENOLOL 25 MG TABLET PO SCH (21:08)
[2018-09-21] MEDS: BuPROPion XL 300 MG TABCR PO SCH (21:08)
[2018-09-21] MEDS: SENNA 8.6 MG TAB PO SCH (21:08)
[2018-09-21] MEDS: CALCIUM 600MG + VIT D 400 IU TAB PO SCH (21:08)
[2018-09-21] MEDS: SULFAMETHOXAZOLE/TRIMETHOPRIM DS 800/160MG TAB PO SCH (21:08)
[2018-09-21] MEDS: QUETIAPINE FUMARATE 100 MG TABLET PO SCH (21:08)
[2018-09-21] MEDS: CHOLECALCIFEROL 1,000 UNITS TAB PO SCH (21:09)
[2018-09-21] MEDS: CYANOCOBALAMIN 500 MCG TABLET (VITAMIN B-12) PO SCH (21:09)
[2018-09-22] MEDS: OXYCODONE HCL IR 5 MG TAB (IMMEDIATE RELEASE) PO PRN ×3 (01:24→11:39)
[2018-09-22] MEDS: ACETAMINOPHEN 500 MG TAB PO SCH (05:10)
[2018-09-22] MEDS: HYDROmorphone INJ 0.5 MG/0.5 ML SYR IV PRN (05:10)
[2018-09-22 05:40] LABS: Basophils # (auto) 0.01 K/uL (0-0.2); Basophils % (auto) 0.2 %; Eosinophils # (auto) 0.14 K/uL (0-0.5); Eosinophils % (auto) 2.2 %; Hemoglobin 10.6 g/dL (12.0-16.0); Immature Granulocytes # (auto) 0.01 K/uL (0.00-0.02); Immature Granulocytes % (auto) 0.2 %; Lymphocytes % (auto) 19.2 %; Mean Corpuscular Hgb Conc 33.1 g/dL (32-36); Mean Corpuscular Volume 92.2 fL (80-100); Mean Platelet Volume 10.2 fL (7.4-10.4); Monocytes # (auto) 0.79 K/uL (0.11-0.59); Monocytes % (auto) 12.7 %; Neutrophils # (auto) 4.09 K/uL (1.4-6.5); Neutrophils % (auto) 65.5 %; Platelet Count 157 K/uL (130-400); RDW Coefficient of Variation 12.6 % (11.5-14.5); RDW Standard Deviation 42.4 fL (36.4-46.3); Red Blood Count 3.47 M/uL (4.2-5.4); White Blood Count 6.24 K/uL (4.8-10.8)
[2018-09-22 06:12] LABS: BUN Creatinine Ratio 8.1 (10-20); Calcium 8.8 mg/dl (8.5-10.1); Creatinine Clr Calc Pharmacy 58.2 ml/min; Est GFR (African American) 78.8
--- NOTE | 2018-09-22 07:42 | Orthopedic Progress Note ---
Date of Service September 22, 2018 Assessment & Plan (1) S/p reverse total shoulder arthroplasty: Patient is POD #2 from right reverse total shoulder arthroplasty. -Pain management -DVT prophylaxisaspirin, SCDs -PT/OT -Discharge planninghome today. Subjective Patient is POD #2 from right reverse total shoulder. Pain better this AM. Denies any other complaints. No chest pain,shortness of breath, dizziness, nausea, vomiting, diarrhea. Physical Exam Physical Exam: Right shoulder incision c/d/i, no drainage, no erythema. Fingers mobile, sling in tact. Results & Data Vital Signs (Past 12 Hours) Vital Signs Temp Pulse Pulse Resp BP Pulse Ox 09/22/18 07:07 37.1 C 65 18 113/67 92 09/22/18 00:13 37.0 C 66 14 126/77 92 09/21/18 21:04 73 123/67
[2018-09-22] MEDS: DOCUSATE SODIUM 100 MG CAP PO SCH (08:30)
[2018-09-22] MEDS: PANTOprazole 40 MG TAB PO SCH (08:30)
[2018-09-22] MEDS: MULTIVITAMIN TAB PO SCH (08:30)
[2018-09-22] MEDS: BUSPIRONE HCL 7.5 MG TAB PO SCH (08:31)
[2018-09-22] MEDS: SULFAMETHOXAZOLE/TRIMETHOPRIM DS 800/160MG TAB PO SCH (08:31)
[2018-09-22] MEDS: SERTRALINE HCL 50 MG TABLET PO SCH (08:31)
[2018-09-22] MEDS: ASPIRIN 81 MG ECTAB PO SCH (08:31)
[2018-09-22] MEDS: LORATADINE 10 MG TAB PO SCH (08:31)
[2018-09-22] MEDS: FAMCICLOVIR 250 MG PO SCH (08:33)
--- NOTE | 2018-09-22 11:19 | Hospitalist Progress Note ---
Date of Service September 22, 2018 Assessment & Plan (1) Right shoulder pain: - S/p right reverse total shoulder on 09/20/18, POD#2. - Pain control per primary team. - DVT ppx: Aspirin 81 mg BID. - PT/OT - discharge to home today. - Monitor CBC daily -- below baseline, likely related to acute blood loss. (2) COPD (chronic obstructive pulmonary disease): - Continue home Combivent q4hr prn. (3) PTSD (post-traumatic stress disorder): - With anxiety/depression -- continue home Welbutrin, Seroquel, Buspar and Zoloft as prescribed. (4) Migraine: - Continue home Imitrex prn. (5) GERD (gastroesophageal reflux disease): - PPI BID. (6) Chronic antibiotic suppression: - H/o lumbar abscess >25 years ago 2/2 indwelling hardware following lumbar surgery. - Follows with Dr. Miles; continue Bactrim DS BID. (7) Cancer: - Hx of cervical and uterine cancer, s/p hysterectomy in 1979. (8) HTN (hypertension): - Continue Atenolol as prescribed. (9) Primary HSV infection of mouth: - On ppx Famciclovir, continue as prescribed. - No evidence of acute flare. (10) DVT prophylaxis: - ASA 81 mg BID. Dispo: Medically stable for discharge, will sign off. Supervising Physician Co-Signing Physician Notes PA Supervision Note: I did not personally see or examine the patient today, but I verified all kearns points of WHIT Yanes's assessment and plan with the following exceptions/additions: None Subjective Pt. is doing well. Nausea now resolved, tolerating PO intake. Has shoulder pain, well controlled. Denies chest pain, SOB, vomiting. Is passing gas, no BM yet. Will be discharged to home. Review of Systems Review of Systems: All systems reviewed & are unremarkable except as noted in HPI & below Constitutional: no fever, no chills, no fatigue, no weakness and no anorexia Respiratory: no cough, no dyspnea and no dyspnea on exertion Cardiovascular: no chest pain, no palpitations and no edema Gastrointestinal: + constipation; no abdominal pain, no nausea and no vomiting Genitourinary: no difficulty urinating Musculoskeletal: no back pain and no joint pain Integumentary: no non-healing lesions Allergy / Immunological: no rash Physical Exam Physical Exam: General: Resting comfortably in no apparent distress HEENT: NC/AT; PERRLA with EOMI; [place] conjunctiva, MMM. No erythema of posterior pharynx Neck: Supple and nontender Cardiac: RRR Lungs: CTA bilaterally Abdomen: Bowel normoactive X 4; Nontender to palpation Extremities: Warm. No edema present Neuro: No focal weakness Skin: No rash Results & Data Vital Signs (Past 12 Hours) Vital Signs Temp Pulse Pulse Resp BP BP Pulse Ox 09/22/18 08:27 37.1 C 65 73 18 113/67 104/57 L 92 09/22/18 07:07 37.1 C 65 18 113/67 92 09/22/18 00:13 37.0 C 66 14 126/77 92 Laboratory Results 09/22/18 09/22/18 Range/Units 05:01 05:01 WBC 6.24 (4.8-10.8) K/uL RBC 3.47 L (4.2-5.4) M/uL Hgb 10.6 L (12.0-16.0) g/dL Hct 32.0 L (37-47) % MCV 92.2 (80-100) fL MCH 30.5 (25-34) pg MCHC 33.1 (32-36) g/dL RDW Std Deviation 42.4 (36.4-46.3) fL RDW Coeff of Cha 12.6 (11.5-14.5) % Plt Count 157 (130-400) K/uL MPV 10.2 (7.4-10.4) fL Immature Gran % (Auto) 0.2 % Neut % (Auto) 65.5 % Lymph % (Auto) 19.2 % [place] % (Auto) 12.7 % Eos % (Auto) 2.2 % Baso % (Auto) 0.2 % Immature Gran # (Auto) 0.01 (0.00-0.02) K/uL Neut # (Auto) 4.09 (1.4-6.5) K/uL Lymph # (Auto) 1.20 (1.2-3.4) K/uL [place] # (Auto) 0.79 H (0.11-0.59) K/uL Eos # (Auto) 0.14 (0-0.5) K/uL Baso # (Auto) 0.01 (0-0.2) K/uL Sodium 133 L (136-145) mmol/L Potassium 4.0 (3.5-5.1) mmol/L Chloride 99 (98-107) mmol/L Carbon Dioxide 28 (21-32) mmol/L Anion Gap 6.0 (3-11) BUN 7 (7-18) mg/dl Creatinine 0.89 (0.6-1.2) mg/dl Est Cr Clr Drug Dosing 58.2 ml/min Est GFR ( Amer) 78.8 Est GFR (Non-Af Amer) 68.0 BUN/Creatinine Ratio 8.1 L (10-20) Glucose 122 H (70-99) mg/dl Calcium 8.8 (8.5-10.1) mg/dl PG Care Time/CCT Total # of Minutes Spent Total Time Spent with Patient: Total time spent is greater than 50% in coordination of care (as documented) at patient's floor/unit and/or counseling patient:
--- NOTE | 2018-10-04 03:27 | Discharge Summary ---
This is a 63-year-old female patient of Dr. Gold, complaining of chronic right shoulder pain and weakness, longstanding, now progressively getting worse. She has been diagnosed with osteoarthritis and insufficient rotator cuff and elected to proceed with a right reversed total shoulder arthroplasty. PAST MEDICAL HISTORY: Hypertension, COPD, anxiety, peripheral neuropathy, osteoarthritis, sciatica and hiatal hernia. POSTOPERATIVE COURSE: The patient underwent a right reversed total shoulder arthroplasty on 09/20/2018. She was followed closely with medical consultation, physical therapy and pain control. The patient did well and was discharged on postoperative day #2. PHYSICAL EXAMINATION: On discharge, right shoulder incision was clean, dry and intact. Morteza were intact. Skin edges were approximated well. There was no redness or drainage. Neurologically and neurovascularly, she was intact in her upper right extremity. DIAGNOSES: Status post right reverse total shoulder arthroplasty with a history of hypertension, chronic obstructive pulmonary disease, anxiety, peripheral neuropathy, osteoarthritis, sciatica and hiatal hernia. PLAN: The patient was discharged home with home exercises only. She will continue her preadmission medications and pain medications as ordered. She will follow up in the office as scheduled.
== END 2018-09-22 12:37 | disposition home or self-care (01) | DRG 483 ==
LOC: ASU 06:27 → 3E 11:43

== ENCOUNTER 2022-12-22 07:57 | Inpatient (IN) ==
--- NOTE | 2022-11-18 15:30 | PAT Medication Instructions ---
Medication Instructions Date of Service November 18, 2022 Home Medications bupropion HCl 300 mg 24 hr tablet, extended release 300 mg PO HS buspirone 15 mg tablet 15 mg PO TID calcium carbonate 600 mg-vitamin D3 5 mcg (200 unit) capsule (Calcium 600 + D(3)) 1 cap PO QPM cholecalciferol (vitamin D3) 25 mcg (1,000 unit) tablet (Vitamin D3) 1,000 unit PO Q2D famciclovir 250 mg tablet 250 mg PO BID ipratropium 20 mcg-albuterol 100 mcg/actuation mist for inhalation (Combivent Respimat) 1 puff inhalation Q4H PRN loratadine 10 mg capsule 10 mg PO QAM lorazepam 0.5 mg tablet 0.5 mg PO TID PRN methocarbamol 500 mg tablet 500 mg PO TID PRN multivitamin 1 tab PO QAM olodaterol 2.5 mcg/actuation mist for inhalation (Striverdi Respimat) 2 inh inhalation QAM omeprazole 20 mg tablet,delayed release 20 mg PO BID quetiapine 100 mg tablet (Seroquel) 200 mg PO HS sertraline 50 mg tablet 50 mg PO QAM lisinopril 5 mg tablet 5 mg PO QAM naloxone 0.4 mg/mL injection solution 4 mg intranasal DAILY PRN Epidiolex 1 tab PO DAILY PRN migraines atorvastatin 20 mg tablet 20 mg PO QAM cephalexin 500 mg capsule 500 mg PO HS melatonin 3 mg capsule 9 mg PO HS topiramate 25 mg capsule sprinkle,extended release 24 hr 25 mg PO HS Check if prescriber has lynette-operative recommendations, otherwise continue as normal quetiapine 100 mg tablet (Seroquel) 200 mg PO HS Continue as directed Epidiolex 1 tab PO DAILY PRN migraines(if needed) naloxone 0.4 mg/mL injection solution 4 mg intranasal DAILY PRN(if needed) DO NOT take the morning of surgery cholecalciferol (vitamin D3) 25 mcg (1,000 unit) tablet (Vitamin D3) 1,000 unit PO Q2D loratadine 10 mg capsule 10 mg PO QAM methocarbamol 500 mg tablet 500 mg PO TID PRN multivitamin 1 tab PO QAM lisinopril 5 mg tablet 5 mg PO QAM Take morning of surgery With a small sip of water, OTHERWISE NOTHING TO EAT OR DRINK AFTER MIDNIGHT: buspirone 15 mg tablet 15 mg PO TID famciclovir 250 mg tablet 250 mg PO BID ipratropium 20 mcg-albuterol 100 mcg/actuation mist for inhalation (Combivent Respimat) 1 puff inhalation Q4H PRN(if needed) lorazepam 0.5 mg tablet 0.5 mg PO TID PRN(if needed) olodaterol 2.5 mcg/actuation mist for inhalation (Striverdi Respimat) 2 inh inhalation QAM omeprazole 20 mg tablet,delayed release 20 mg PO BID sertraline 50 mg tablet 50 mg PO QAM atorvastatin 20 mg tablet 20 mg PO QAM Take evening before surgery bupropion HCl 300 mg 24 hr tablet, extended release 300 mg PO HS buspirone 15 mg tablet 15 mg PO TID calcium carbonate 600 mg-vitamin D3 5 mcg (200 unit) capsule (Calcium 600 + D(3)) 1 cap PO QPM famciclovir 250 mg tablet 250 mg PO BID ipratropium 20 mcg-albuterol 100 mcg/actuation mist for inhalation (Combivent Respimat) 1 puff inhalation Q4H PRN(if needed) lorazepam 0.5 mg tablet 0.5 mg PO TID PRN(if needed) methocarbamol 500 mg tablet 500 mg PO TID PRN(if needed) omeprazole 20 mg tablet,delayed release 20 mg PO BID cephalexin 500 mg capsule 500 mg PO HS melatonin 3 mg capsule 9 mg PO HS topiramate 25 mg capsule sprinkle,extended release 24 hr 25 mg PO HS Other Notes If you have any questions please call us at [phone] or [phone] or [phone] or [phone]
--- NOTE | 2022-11-24 09:12 | Anesthesiology Consultation ---
Date of Service November 24, 2022 Assessment & Plan (1) Encounter for pre-operative examination: - Infectious disease screening: Per assessment on 11/24: No known infectious disease contacts or current infectious disease symptoms. No noted Covid positive test result in past 90 days. - Consents: Hx multiple TBIs ( + approximately 2020 after mechanical fall/hit head)- "Very forgetful." Patient signs own consents but prefers to be present when possible for medical discussions/instructions. - Abnormal stress test: There is a medium in size, mild to moderate intensity reversible MPI defect involving the basal and mid inferior and inferior septal myocardium. These findings are consistent with mild to moderate RCA territory ischemia plus or minus artifact. Study is moderately abnormal. There are technical limitations, however, findings suggest moderate ischemia. Recommend consider definitive evaluation by coronary angiography. PCP response (11/25/22): "In summary of care: Coronary artery calcification; abnormal stress test 11/23/22: While she is without angina, she has dyspnea on exertion, which may be due to other medical problems. Imaging: Cardiology CT chest at [facility] on 05/18/2022 moderate coronary artery calcification. Cardiac testing: Echocardiogram 07/29/22.. Myocardial p erfusion study of 11/23/22.. Consultations: She was evaluated by cardiology Dr. Anoop Mccoy.. on 08/18/22. Abnormal stress test.. At this junction she is not able to safely proceed with planned upcoming vascular surgery. As [facility] is out of the office, I discussed her case with ANABEL Fontana.. And we are in agreement that diagnostic cardiac catheterization to [facility] interventional cardiology ([facility]) care, order placed.. Continue aspirin 81 mg daily for secondary prevention" > Vernell at surgeon's office made aware of the above and PCP communication forwarded to their office. She states their office will contact patient/OR to discuss rescheduling/next steps* Chart Review Chart Review: Patient seen in Pre Admission Testing Teaching & Discussion Pre-Anesthesia Teaching/Discussion Notes: Instructed NPO after midnight before surgery,except medications with 15 cc of water. Medication instructions provided according to the PAT guidelines. History Surgery Operation Date: 11/30/22 07:30 Proposed Procedures p Left Common Femoral Endarterctomy with Patch, - Jeronimo Rascon MD s Bilateral Lower Extremity Angiogram with Iliac Artery Intervention - Jeronimo Rascon MD Height/Weight Height: 5 ft 1 in Weight: 52.1 kg Allergies Allergy/AdvReac Type Severity Reaction Status Date / Time budesonide [From Symbicort] AdvReac Intermediate Shakiness Verified 11/18/22 13:46 formoterol [From Symbicort] AdvReac Intermediate Shakiness Verified 11/18/22 13:46 codeine AdvReac Mild Headache Verified 11/18/22 13:46 levofloxacin AdvReac Mild Diffuse Verified 11/18/22 13:46 tendonitis oats AdvReac Mild Headache Verified 11/18/22 13:46 Medications Home Medications Medication Instructions Recorded Confirmed Last Taken bupropion HCl 300 mg 24 hr tablet, 300 mg PO HS 08/22/18 11/18/22 05/08/21 extended release buspirone 15 mg tablet 15 mg PO TID 08/22/18 11/18/22 05/09/21 08:00 calcium carbonate 600 mg-vitamin 1 cap PO QPM 08/22/18 11/18/22 05/08/21 D3 5 mcg (200 unit) capsule (Calcium 600 + D(3)) cholecalciferol (vitamin D3) 25 1,000 unit PO Q2D 08/22/18 11/18/22 05/08/21 mcg (1,000 unit) tablet (Vitamin D3) famciclovir 250 mg tablet 250 mg PO BID 08/22/18 11/18/22 05/09/21 ipratropium 20 mcg-albuterol 100 1 puff inhalation Q4H PRN Wheezing 08/22/18 11/18/22 04/03/19 mcg/actuation mist for inhalation (Combivent Respimat) loratadine 10 mg capsule 10 mg PO QAM 08/22/18 11/18/22 05/09/21 lorazepam 0.5 mg tablet 0.5 mg PO TID PRN Anxiety 08/22/18 11/18/22 04/28/20 methocarbamol 500 mg tablet 500 mg PO TID PRN Muscle Spasm 08/22/18 11/18/22 04/29/20 10:00 multivitamin 1 tab PO QAM 08/22/18 11/18/22 05/09/21 olodaterol 2.5 mcg/actuation mist 2 inh inhalation QAM 08/22/18 11/18/22 05/09/21 for inhalation (Striverdi Respimat) omeprazole 20 mg tablet,delayed 20 mg PO BID 08/22/18 11/18/22 05/09/21 08:00 release quetiapine 100 mg tablet (Seroquel) 200 mg PO HS 08/22/18 11/18/22 05/08/21 sertraline 50 mg tablet 50 mg PO QAM 08/22/18 11/18/22 05/09/21 lisinopril 5 mg tablet 5 mg PO QAM 04/14/20 11/18/22 05/09/21 naloxone 0.4 mg/mL injection 4 mg intranasal DAILY PRN Opiate 04/14/20 11/18/22 Unknown solution Reversal Epidiolex 1 tab PO DAILY PRN migraines 11/18/22 11/18/22 Unknown atorvastatin 20 mg tablet 20 mg PO QAM 11/18/22 11/18/22 Unknown cephalexin 500 mg capsule 500 mg PO HS 11/18/22 11/18/22 Unknown melatonin 3 mg capsule 9 mg PO HS 11/18/22 11/18/22 Unknown topiramate 25 mg capsule 25 mg PO HS 11/18/22 11/18/22 Unknown sprinkle,extended release 24 hr Past Medical History Medical History Abscess Hx lumbar abscess (5+ years ago) 2/2 indwelling hardware, follows with infectious disease, chronic lifelong suppressive therapy with cefadroxil rec'd, no acute issues Anxiety Cancer cervical (1979) Chronic back pain LLE radiculopathy Chronic obstructive pulmonary disease stable Cold sore Taking famcyclovir preventatively/no recent issues Depression GERD (gastroesophageal reflux disease) controlled Hiatal hernia History of infection with vancomycin resistant Enterococcus (VRE) UTI (2015) in [place] > no current issues Hypertension Migraine Osteoarthritis Post traumatic stress disorder TBI (traumatic brain injury) + approximately 2020 (after mechanical fall/hit head) - "very forgetful ", needs to be present for medical discussions/instructions > able to sign consents Exercise / Class Metabolic Activity II 4-5 Yardwork/Stairs/Walk up hill (one FS (no CP, no SOB)) Past Family History Family History Aunt Family history of diabetes mellitus Aunt Family history of diabetes mellitus Mother Family history of diabetes mellitus Myocardial infarction Past Surgical History Surgical History Fusion of spine Lumbar x2 H/O abdominoplasty History of arthroscopy Right shoulder Left shoulder arthroscopy (04/30/20): Grade 2 view, MAC 3.0, ETT 7.0 + PNB at [facility] History of cholecystectomy History of colonoscopy History of esophagogastroduodenoscopy (EGD) History of gastric bypass 2003 History of hysterectomy History of open reduction and internal fixation (ORIF) procedure Right ankle History of tooth extraction Status post reverse total arthroplasty of right shoulder Right reverse TSA (09/20/18): Grade view 1, MAC#3, ETT 7.0 + PNB at [facility] Vocal cord polyp Removal Past Anesthesia History No Hx of Anesthesia Complications and No Family Hx of Anesthesia Complications History of PONV No Hx of PONV and Hx of Motion Sickness (rare) Social History Smoking Status: Former smoker Do You Dip or Chew Tobacco: No Smoking End Date: 2002-used to smoke 4 packs per day Hx Alcohol Use: No (hx-none for 10 years) Hx Substance Use: Yes substance use type: former substance user and marijuana (Medical marijuana card- vape at night (insomnia)) Review of Systems Patient denies chest pain, shortness of breath, dyspnea on exertion, fever, chills, cough, wheezing, palpitations. Physical Exam Vital Signs VITALS BP 126/67 P 71 TEMP 98.6 SP02 98%RA RESP 16 PHYSICAL Full cervical extension range of motion. Full TMJ range of motion. TMD 3 finger breaths Mallampati Score 1 Dentition: upper/lower full dentures Lungs: clear throughout to auscultation Cardiac: regular rate and rhythm, no murmurs noted Spine: normal Carotid arteries: negative bruit Extremities: no LE edema Lab Results Anesthesia Preop Results Results Anesthesia Widget: WBC 6.92 K/ul (4.8-10.8) 11/15/22 Hgb 13.1 g/dl (12.0-16.0) 11/15/22 Hct 38.7 % (37.0-47.0) 11/15/22 Plt 219 K/uL (130-400) 11/15/22 Na 136 mmol/L (136-145) 11/15/22 K 4.5 mmol/L (3.5-5.1) 11/15/22 Cl 102 mmol/L (98-107) 11/15/22 CO2 27 mmol/L (21-32) 11/15/22 BUN 13 mg/dl (6-23) 11/15/22 Creat 0.99 mg/dl (0.6-1.2) 11/15/22 Glucose Level 98 mg/dl (70-99(Fasting)) 11/15/22 PT 11.2 Seconds (9.0-12.0) 11/24/22 PTT 28.5 Seconds (21.0-31.0) 11/24/22 INR 1.0 (0.9-1.1) 11/24/22 Blood Type A Negative 11/24/22 Antibody Screen NEGATIVE 11/24/22 Testing Electrocardiogram Date: 11/24/22 NSR at 61bpm. unconfirmed report. Stress Test Date: 11/23/22 Type: nuclear Hemodynamic and electrocardiographic findings: 1. Resting heart rate of 54 bpm christiano to a maximum of 89 bpm with Lexiscan infusion. 2. Resting blood pressure of 143/50 mmHg dropped to a low of 122/66 mmHg during recovery after Lexiscan infusion. 3. Baseline EKG demonstrated sinus bradycardia without diagnostic ST segment or T wave abnormalities. There were no Lexiscan induced diagnostic ischemic EKG changes. No Lexiscan induced arrhythmia. Myocardial perfusion imaging findings: 1. Raw data analysis demonstrates heterogenous uptake, mild movement artifact, and increased GI uptake. This study is adequate for interpretation but not optimal. 2. Gated myocardial perfusion imaging demonstrates mild inferior hypokinesis. EF mildly reduced calculated at 47%. 3. There is a medium in size, mild to moderate intensity reversible MPI d efect involving the basal and mid inferior and inferior septal myocardium. These findings are consistent with mild to moderate RCA territory ischemia plus or minus artifact. 4. Study is moderately abnormal. There are technical limitations, however, findings suggest moderate ischemia. Recommend consider definitive evaluation by coronary angiography. Other Testing Chest CT Date: 05/18/22 FINDINGS: There are old, healed right-sided rib fractures. There is a right shoulder prosthesis. Evidence for prior gastric bypass with a large hiatus hernia containing the gastric pouch and proximal gastrojejunostomy. Mild circumferential thickening of the distal esophagus. The abdominal structures will be reported on the same day abdomen and pelvis CT. The thyroid gland enhances normally. The heart is normal in size. No pleural or pericardial effusions. No mediastinal or hilar lymphadenopathy. Dense mitral annulus calcifications are noted. Normal caliber thoracic aorta with mild/moderate calcified plaque. Moderate coronary calcifications are present the central pulmonary arteries are patent. No pneumothorax. The central airways are patent. Small linear density within the right lung apex may represent suture material. This remains unchanged. Stable benign 3 mm subpleural nodule within the right upper lobe on image 53. Small focus of suture material within the base of the right lower lobe is also unchanged. No new or suspicious pulmonary nodules. No focal lung consolidations to suggest a pneumonia. IMPRESSION: No focal lung consolidations to suggest a pneumonia. No lymphadenopathy within the chest. Large hiatus hernia.
--- NOTE | 2022-12-21 15:40 | History & Physical Report ---
Date of Service December 21, 2022 Assessment & Plan (1) Aortoiliac occlusive disease: Plan: Patient is admitted for a left femoral artery endart and stenting of her iliac arteries. I have discussed the risks options and benefits of the procedure with the patient. The patient understands the risks options and benefits and agrees to the procedure. History of Present Illness Chief Complaint: Aortoiliac and left femoral occlusive disease Primary Care Provider: [facility] Neyda is an elderly female who presents to Dr. Rascon vascular surgery clinic today for a follow-up visit after undergoing a CTA of the abdomen pelvis with runoff at [facility] to evaluate her aortoiliac and peripheral arterial disease. Patient states that since she was here a month or 2 ago, she feels that her symptoms of claudication may have worsened. She feels that she is walking less than 300 feet before her thighs and calves are causing her pain and she needs to stop. She continues to state that her right leg is worse than her left. She also states a new symptom of having burning sensation in her left foot, but understands that this may be related to more of a nerve/spine issue as she has undergone multiple spinal surgeries in the past. She denies any new ulcerations on the foot, discoloration of the feet, or other new concerns. The CTA abdomen pelvis with runoff which was performed at [facility] does demonstrate significant aortoiliac occlusive disease with a near o cclusive lesion of her left common femoral artery, as well as significant stenoses in her bilateral common iliac arteries right worse than left, and significant internal iliac artery disease as well. Allergies Allergy/AdvReac Type Severity Reaction Status Date / Time budesonide [From Symbicort] AdvReac Intermediate Shakiness Verified 12/08/22 09:23 formoterol [From Symbicort] AdvReac Intermediate Shakiness Verified 12/08/22 09:23 codeine AdvReac Mild Headache Verified 12/08/22 09:23 levofloxacin AdvReac Mild Diffuse Verified 12/08/22 09:23 tendonitis oats AdvReac Mild Headache Verified 12/08/22 09:23 Home Medications Medication Instructions Recorded Confirmed Type bupropion HCl 300 mg 24 hr tablet, 300 mg PO HS 08/22/18 12/08/22 History extended release buspirone 15 mg tablet 15 mg PO TID 08/22/18 12/08/22 History calcium carbonate 600 mg-vitamin 1 cap PO QPM 08/22/18 12/08/22 History D3 5 mcg (200 unit) capsule (Calcium 600 + D(3)) cholecalciferol (vitamin D3) 25 1,000 unit PO Q2D 08/22/18 12/08/22 History mcg (1,000 unit) tablet (Vitamin D3) famciclovir 250 mg tablet 250 mg PO BID 08/22/18 12/08/22 History ipratropium 20 mcg-albuterol 100 1 puff inhalation Q4H PRN Wheezing 08/22/18 12/08/22 History mcg/actuation mist for inhalation (Combivent Respimat) loratadine 10 mg capsule 10 mg PO QAM 08/22/18 12/08/22 History lorazepam 0.5 mg tablet 0.5 mg PO TID PRN Anxiety 08/22/18 12/08/22 History methocarbamol 500 mg tablet 500 mg PO TID PRN Muscle Spasm 08/22/18 12/08/22 History multivitamin 1 tab PO QAM 08/22/18 12/08/22 History olodaterol 2.5 mcg/actuation mist 2 inh inhalation QAM 08/22/18 12/08/22 History for inhalation (Striverdi Respimat) omeprazole 20 mg tablet,delayed 20 mg PO BID 08/22/18 12/08/22 History release quetiapine 100 mg tablet (Seroquel) 200 mg PO HS 08/22/18 12/08/22 History sertraline 50 mg tablet 50 mg PO QAM 08/22/18 12/08/22 History lisinopril 5 mg tablet 5 mg PO QAM 04/14/20 12/08/22 History naloxone 0.4 mg/mL injection 4 mg intranasal DAILY PRN Opiate 04/14/20 12/08/22 History solution Reversal Epidiolex 1 tab PO DAILY PRN migraines 11/18/22 12/08/22 History atorvastatin 20 mg tablet 20 mg PO QAM 11/18/22 12/08/22 History cephalexin 500 mg capsule 500 mg PO HS 11/18/22 12/08/22 History melatonin 3 mg capsule 9 mg PO HS 11/18/22 12/08/22 History topiramate 25 mg capsule 25 mg PO HS 11/18/22 12/08/22 History sprinkle,extended release 24 hr cefadroxil 500 mg capsule 500 mg PO DAILY 12/03/22 12/08/22 History methylprednisolone 4 mg tablets in 4 mg PO DAILY pain and 12/15/22 12/15/22 Rx a dose pack (Medrol (Bruno)) inflammation #21 ea Past Med/Surg History Medical History Abscess Hx lumbar abscess (5+ years ago) 2/2 indwelling hardware, follows with infectious disease, chronic lifelong suppressive therapy with cefadroxil rec'd, no acute issues Anxiety Cancer cervical (1979) Chronic back pain LLE radiculopathy Chronic obstructive pulmonary disease stable Cold sore Taking famcyclovir preventatively/no recent issues Depression GERD (gastroesophageal reflux disease) controlled Hiatal hernia History of infection with vancomycin resistant Enterococcus (VRE) UTI (2015) in [place] > no current issues Hypertension Migraine Osteoarthritis Post traumatic stress disorder TBI (traumatic brain injury) + approximately 2020 (after mechanical fall/hit head) - "very forgetful", needs to be present for medical discussions/instructions > able to sign consents Surgical History Fusion of spine Lumbar x2 H/O abdominoplasty History of arthroscopy Right shoulder Left shoulder arthroscopy (04/30/20): Grade 2 view, MAC 3.0, ETT 7.0 + PNB at [facility] History of cholecystectomy History of colonoscopy History of esophagogastroduodenoscopy (EGD) History of gastric bypass 2003 History of hysterectomy History of open reduction and internal fixation (ORIF) procedure Right ankle History of tooth extraction Status post reverse total arthroplasty of right shoulder Right reverse TSA (09/20/18): Grade view 1, MAC#3, ETT 7.0 + PNB at [facility] Vocal cord polyp Removal Family History Aunt Family history of diabetes mellitus Aunt Family history of diabetes mellitus Mother Family history of diabetes mellitus Myocardial infarction Social History Smoking Status: Former smoker Tobacco Type: Cigarettes Smoking End Date: 2002-used to smoke 4 packs per day; Second Hand Exposure: Yes (hx); Do You Dip or Chew Tobacco: No; Tobacco Cessation Education Requested by Patient: No Hx Alcohol Use: No Hx Substance Use: No Preferred Language: Tajik Communication Ability: Effective Funeral Service Apprentice Required: No Beliefs That Will Affect Care: None Current Living Situation: Spouse Other Information That Helps Us Care for You: No Feels Safe at Home: Yes Safety Concerns: Feels Safe At This Time Assistive Devices: None Review of Systems All systems reviewed & are unremarkable except as noted in HPI & below Physical Exam Physical Exam: Constitutional: In general patient is a healthy-appearing well-nourished well- developed middle-aged female no distress. Is alert and oriented without any focal deficits. Her heart is regular, her lungs are clear. Her abdomen is soft and nontender with normoactive bowel sounds in all 4 quadrants. Brachial and radial pulses are +3. Right femoral pulse is nonpalpable, left femoral pulse +1. Left lower extremity distal pulses +1, right was nonpalpable. Toes demonstrate brisk capillary refill and no sign of distal ischemia.
[~2022-12-22 07:57] MED LIST changes: -ACETAMINOPHEN 500 MG TAB PO SCH; -CEFAZOLIN 1000MG 1,000 MG/7.5 ML SYR IV SCH; +CEFAZOLIN 2,000 MG/15 ML SYR IV SCH; -CeleBREX 200 MG CAP PO SCH; -FAMOTIDINE 20 MG TAB PO SCH; -GABAPENTIN 300 MG CAP PO SCH; +GELATIN SPONGE SZ 100 ONE; +HEPARIN (PORCINE) 1000 UNIT/ML 10 ML (CATH LAB USE ONLY) ONE; +LIDOCAINE 2% 2 ML VIAL/AMP(20MG/ML) INFIL ONE; -LR 15ML/HR IV SCH; -METOCLOPRAMIDE HCL 10 MG TABLET PO SCH; +MIDAZOLAM HCL 1 MG/ML 2ML VIAL ONE; +ONDANSETRON INJ 2 MG/ML 2 ML VIAL ONE; +PROPOFOL IV EMULSION 10 MG/ML 20 ML VIAL IV ONE; +ROCURONIUM BROMIDE 10 MG/ML 5 ML VIAL IV ONE; +SODIUM CHLORIDE 0.9% 1,000 ML IV SCH; +THROMBIN FOR SOLN 20000 UNIT KIT ONE; -VANCOMYCIN HCL 1,000 MG/270 ML BAG IV SCH; +ceFAZolin 330 MG/ML 1 GM VIAL ONE; -dexAMETHasone 4 MG TAB PO SCH; +fentaNYL citrate PF 100 MCG/2 ML VIAL ONE
--- NOTE | 2022-12-22 09:06 | History & Physical Bridge Note ---
Date of Service December 22, 2022 History & Physical Bridge Note I have examined the patient, reviewed the History & Physical and in the interval since the performance of the History & Physical I have noted the following changes of clinical significance: no changes noted
[2022-12-22 09:14] LABS: BUN Creatinine Ratio 16.3 (10-20); Calcium 8.8 mg/dl (8.6-10.3); Creatinine Clr Calc Pharmacy 38.5 ml/min; Est GFR (African American) 63.5 ml/min; Est GFR (Non-African American) 54.8 ml/min; Potassium 3.9 mmol/L (3.5-5.1)
[2022-12-22] MEDS ORDERED: PROMETHAZINE HCL 6.25 MG in SODIUM CHLORIDE 0.9% 50 ML IV PRN (10:00)
[2022-12-22] MEDS ORDERED: ONDANSETRON INJ 2 MG/ML 2 ML VIAL IV PRN (10:00)
[2022-12-22] MEDS ORDERED: ATROPINE SULFATE 0.1 MG/ML 10ML SYR IV PRN (10:00)
[2022-12-22] MEDS ORDERED: KETOROLAC 30 MG/ML VIAL IV PRN (10:00)
[2022-12-22] MEDS ORDERED: ePHEDrine sulfate 50 MG/5 ML SYR ONE (10:10)
[2022-12-22] MEDS ORDERED: GLYCOPYRROLATE 0.2 MG/ML VIAL ONE (10:10)
[2022-12-22] MEDS ORDERED: ETOMIDATE 2 MG/ML 20 ML VIAL IV ONE (10:10)
[2022-12-22] MEDS ORDERED: fentaNYL citrate PF 100 MCG/2 ML VIAL ONE (10:35)
[2022-12-22] MEDS ORDERED: HEPARIN SOD (PORCINE) 1000 UNIT/ML ONE (11:38)
--- NOTE | 2022-12-22 11:59 | Operative Report ---
Post Operative Report Pre & Post Diagnosis Operation Date: 12/22/22 10:00 Pre-Op Diagnosis: aortoiliac Occlusive Disease Post-Op Diagnosis: aortoiliac Occlusive Disease I identified the patient and participated in the time-out.: Yes Procedure Operation Date: 12/22/22 10:00 Actual Procedures p Left Common Femoral Endarterctomy with bovine Patch(Left) - Jeronimo Rascon MD s Bilateral Lower Extremity Angiogram (Bilateral) - Jeronimo Rascon MD Surgeon Jeronimo Rascon MD Boat [employer] MARK Abdullahi Estimated Blood Loss 50 Findings Consistent with Post-Op Diagnosis Specimens none Anesthesia Type RN Sedation Complications none Disposition Accompanied Patient To Recovery: No Disposition: Recovery Room Indications This is a 67-year-old female who ended up with severe claudication of her left lower extremity. She was found to have possibly iliac artery stenosis as well as a left common femoral artery occlusion. Endarterectomy with possible angioplasty of the iliacs was recommended. I have discussed the risks options and benefits of the procedure with the patient. The patient understands the risks options and benefits and agrees to the procedure. Description of Procedure The patient was taken the operating placed supine position. After both groins were prepped and draped in a sterile manner after general she was accomplished the patient was identified and a timeout was performed. Longitudinal incision was made in the left groin. This carried down to where the common femoral artery was identified at the inguinal ligament. This was dissected free down to beyond the bifurcation of the profunda and superficial femoral arteries. The artery was rockhard except for the inguinal ligament where was soft with a posterior plaque present. The superficial femoral artery and profundofemoral arteries are patent with no significant plaque. At that point the right common femoral artery was punctured and a 5 [place] sheath inserted. The left common femoral vein was also punctured above the plaque and another 8 [place] sheath inserted. Hand-injection was performed through the sheath. These were done in AP and both oblique angles. No significant narrowing was seen of the common iliac external iliac arteries or distal aorta. The right sided sheath was then pulled and the puncture closed with a Star closure device with adequate hemostasis. On the left side the sheath was removed and clamps were placed on the superficial profunda and common femoral artery. An arteriotomy was performed from the puncture site proximal distally. A large amount of plaque was seen in the midportion of the common femoral artery extending down to the bifurcation which was totally occluded in the femoral artery. Endarterectomy was then started in appropriate plane. This was carried down to the distal breakoff point that was just beyond the superficial femoral artery origin. The proximal portion was then endarterectomized upward to the level of the clamp. The posterior plaque was pulled down and nice breakoff was noted. Excellent flow was seen. All loose plaque were then removed under direct vision. There was a amount of plaque at the origin of the profundofemoral artery which peeled out nicely as and leaving the profunda origin widely patent with no residual narrowing. After the intervention was completed a bovine patch was sewn over the arteriotomy with a running 6-0 Prolene suture in usual vascular fashion. Prior to completing the closure backbleeding and forward bleeding was allowed to occur. Flow surface was irrigated and the final few sutures placed and securely tied. Clamps were then removed. Excellent flow was seen to the profundofemoral artery with excellent Doppler signals heard at the superficial and profundofe moral artery beyond the patch. Added hemostasis was then obtained. Once adequate hemostasis was noted of the wound and the patch the wound was closed in usual fashion using running 2-0 Vicryl suture for the femoral sheath and a running 3-0 Vicryl for subcutaneous layer. [place] were used for the skin. A Prevena dressing patch was used for the wound.The patient left the operation room in satisfactory condition and tolerated the procedure well. All needle and sponge counts were correct at the end of the procedure. Viviana Gutierres Pac assisted due to lack of resident availability and was ne cessary for positioning, draping, retraction, wound closure deep layers, subcutaneous tissue, and skin closure and was necessary for assisting with the case. I attest to the content of the Intraoperative Record and any orders documented therein. Any exceptions are noted below.
[2022-12-22] MEDS: fentaNYL citrate PF 100 MCG/2 ML VIAL IV PRN ×4 (12:12→12:32)
--- NOTE | 2022-12-22 12:57 | Anesthesiology Progress Note ---
Date of Service December 22, 2022 Anesthesia Post Procedure Vital Signs Vital Signs: Temp Pulse Pulse Resp BP BP Pulse Ox 12/22/22 12:55 76 16 132/82 97 12/22/22 12:45 36.9 C 70 20 149/76 H 96 12/22/22 12:35 69 18 154/79 H 99 12/22/22 12:25 64 18 158/73 H 100 12/22/22 12:15 67 18 144/60 H 100 12/22/22 12:05 36.5 C 76 16 154/77 H 100 12/22/22 08:22 36.7 C 59 L 18 129/64 129/70 98 O2 Del Method O2 Flow Rate 12/22/22 12:55 Room Air 12/22/22 12:45 Room Air 12/22/22 12:35 Room Air 12/22/22 12:25 Oxymask 2 12/22/22 12:15 Oxymask 4 12/22/22 12:05 Oxymask 4 12/22/22 08:22 Room Air Pain Intensity Left Leg: Pain Intensity: 7 Transfer of Care Handoff Completed per policy Notes Mental Status: alert / awake / arousable Patient Amnestic to Procedure: Yes Nausea / Vomiting: adequately controlled Pain: adequately controlled Airway Patency, RR, SpO2: stable & adequate BP & HR: stable & adequate Hydration State: stable & adequate Anesthetic Complications: no major complications apparent
[2022-12-22] MEDS ORDERED: HYDROmorphone INJ 1 MG/ML SYRINGE ONE (12:59)
[2022-12-22] MEDS: HYDROmorphone INJ 1 MG/ML SYRINGE IV PRN ×4 (12:59→14:30)
[2022-12-22] MEDS ORDERED: diphenhydrAMINE 50 MG/ML VIAL ONE (13:18)
[2022-12-22] MEDS ORDERED: diphenhydrAMINE 50 MG/ML VIAL IV STA (13:23)
[2022-12-22] MEDS ORDERED: METHOCARBAMOL 500 MG TABLET PO PRN (14:22)
[2022-12-22] MEDS ORDERED: LORazepam 0.5 MG TAB PO PRN (14:22)
[2022-12-22] MEDS ORDERED: NALOXONE HCL 0.4 MG/1 ML VIAL/CARP INH PRN (14:22)
[2022-12-22] MEDS ORDERED: IPRATROPIUM BROMIDE/ALBUTEROL respimat INH INH PRN (14:22)
[2022-12-22] MEDS ORDERED: Ipratropium HFA Inhaler (Combivent Respimat P&T Subs) INH PRN (14:59)
[2022-12-22] MEDS ORDERED: Albuterol HFA 8 GM Inhaler (Combivent Respimat P&T Subs) INH PRN (14:59)
[2022-12-22] MEDS: D5W AND 1/2NSS 1,000 ML IV SCH (15:34)
[2022-12-22] MEDS: MoRPHine SULFATE 4 MG/ML 1 ML CARP\\VIAL IV PRN ×2 (16:26→20:31)
[2022-12-22] MEDS ORDERED: NALOXONE HCL 0.4 MG/1 ML VIAL/CARP IV PRN (16:41)
[2022-12-22] MEDS: busPIRone 15 MG TAB PO SCH ×2 (17:12→20:31)
[2022-12-22] MEDS: ceFAZolin 2000MG 2,000 MG/15 ML SYR IV SCH ×2 (17:12→23:05)
[2022-12-22] MEDS: ONDANSETRON INJ 2 MG/ML 2 ML VIAL IV PRN (18:00)
[2022-12-22] MEDS: MELATONIN 3 MG TAB PO SCH (20:30)
[2022-12-22] MEDS: TOPIRAMATE 25 MG TAB PO SCH (20:30)
[2022-12-22] MEDS: PANTOprazole 40 MG TAB PO SCH (20:31)
[2022-12-22] MEDS: FAMCICLOVIR 250 MG PO SCH (20:31)
[2022-12-22] MEDS: CALCIUM 600MG + VIT D 400 IU TAB PO SCH (20:31)
[2022-12-22] MEDS: QUEtiapine FUMARATE 200 MG TAB PO SCH (20:31)
[2022-12-22] MEDS: buPROPion XL 300 MG TABCR PO SCH (20:31)
[2022-12-23] MEDS: D5W AND 1/2NSS 1,000 ML IV SCH ×2 (01:28→10:21)
[2022-12-23] MEDS: ONDANSETRON INJ 2 MG/ML 2 ML VIAL IV PRN ×2 (03:09→08:46)
[2022-12-23] MEDS: MoRPHine SULFATE 4 MG/ML 1 ML CARP\\VIAL IV PRN (03:20)
[2022-12-23 06:55] LABS: Basophils # (auto) 0.02 K/uL (0.00-0.20); Basophils % (auto) 0.3 %; Eosinophils # (auto) 0.09 K/uL (0.00-0.50); Eosinophils % (auto) 1.6 %; Hematocrit (blood only) 35.7 % (37.0-47.0); Hemoglobin 11.6 g/dl (12.0-16.0); Immature Granulocytes # (auto) 0.01 K/uL (0.01-0.20); Immature Granulocytes % (auto) 0.2 %; Lymphocytes # (auto) 0.78 K/uL (1.20-3.40); Lymphocytes % (auto) 13.5 %; Mean Corpuscular Hemoglobin 28.8 pg (25.0-34.0); Mean Corpuscular Hgb Conc 32.5 g/dL (32.0-36.0); Mean Corpuscular Volume 88.6 fL (80.0-100.0); Mean Platelet Volume 10.6 fL (9.4-12.4); Monocytes % (auto) 12.2 %; Neutrophils # (auto) 4.16 K/uL (1.40-6.50); Neutrophils % (auto) 72.2 %; Platelet Count 161 K/uL (130-400); RDW Coefficient of Variation 12.8 % (11.5-14.5); RDW Standard Deviation 41.5 fL (36.4-46.3); Red Blood Count 4.03 M/uL (4.20-5.40); White Blood Count 5.76 K/ul (4.8-10.8)
[2022-12-23] MEDS: PANTOprazole 40 MG TAB PO SCH ×2 (08:43→21:09)
[2022-12-23] MEDS: oxyCODONE/ACETAMINOPHEN 5mg/325mg TAB PO PRN ×3 (08:43→21:11)
[2022-12-23] MEDS: busPIRone 15 MG TAB PO SCH ×3 (08:46→21:08)
[2022-12-23] MEDS: lisinopril 5 MG TAB PO SCH (08:46)
[2022-12-23] MEDS: ATORVASTATIN 40 MG TAB PO SCH (08:47)
[2022-12-23] MEDS: MULTIVITAMIN TAB PO SCH (08:47)
[2022-12-23] MEDS: SERTRALINE HCL 50 MG TABLET PO SCH (08:47)
[2022-12-23] MEDS: LORATADINE 10 MG TAB PO SCH (08:47)
[2022-12-23] MEDS: FAMCICLOVIR 250 MG PO SCH ×2 (08:47→21:07)
[2022-12-23] MEDS: OLODATEROL HCL 2.5MCG/ACTUATION 60 PUFFS/INHALER INH SCH (08:49)
[2022-12-23] MEDS ORDERED: CHOLECALCIFEROL 1,000 UNITS 25 MCG TAB PO SCH (09:00)
[2022-12-23] MEDS ORDERED: PROMETHAZINE HCL 25 MG in SODIUM CHLORIDE 0.9% 50 ML IV PRN (09:18)
--- NOTE | 2022-12-23 14:20 | Surgery Progress Note ---
Date of Service December 23, 2022 Assessment & Plan (1) Peripheral arterial disease with history of revascularization: Plan: Postoperative day 1 from left femoral artery endarterectomy with bovine patch angioplasty. She is doing extremely well. Her nausea this has resolved later in the morning. Most likely be ready for discharge tomorrow. Admission and Anticipated Discharge Date Admission Date: December 22, 2022 Subjective Is a 67-year-old female who underwent a left femoral endarterectomy yesterday. She was nauseous this morning but now that has totally resolved. She was up ambulating in the [place] without any difficulty. Physical Exam Constitutional: WD/WN, vitals as above Respiratory: normal respiratory effort; no respiratory distress Cardiovascular: Rate/Rhythm: regular rate and regular rhythm Vessels: dorsalis pedis pulses present (Palpable on the left.) Gastrointestinal (Abdomen): Inspection/Auscultation: abdomen normal to inspection; abdomen not distended Percussion/Palpation: abdomen soft; abdomen nontender Skin: + incision (Prevena in place) Neurologic: CN's II-XI intact bilaterally and moves all extremities Psychiatric: Orientation: oriented x 3 Results & Data Vital Signs (Past 12 Hours) Vital Signs Temp Pulse Resp BP Pulse Ox O2 Del Method 12/23/22 12:03 37.2 C 76 18 149/78 H 99 Room Air 12/23/22 07:37 37.3 C 74 16 159/71 H 96 Room Air 12/23/22 03:04 37.0 C 76 16 167/64 H 96 Room Air
[2022-12-23] MEDS: MELATONIN 3 MG TAB PO SCH (21:07)
[2022-12-23] MEDS: TOPIRAMATE 25 MG TAB PO SCH (21:08)
[2022-12-23] MEDS: CALCIUM 600MG + VIT D 400 IU TAB PO SCH (21:08)
[2022-12-23] MEDS: QUEtiapine FUMARATE 200 MG TAB PO SCH (21:08)
[2022-12-23] MEDS: buPROPion XL 300 MG TABCR PO SCH (21:08)
[2022-12-24] MEDS: ONDANSETRON INJ 2 MG/ML 2 ML VIAL IV PRN (08:54)
[2022-12-24] MEDS: oxyCODONE/ACETAMINOPHEN 5mg/325mg TAB PO PRN ×2 (08:57→14:06)
[2022-12-24] MEDS: MULTIVITAMIN TAB PO SCH (09:00)
[2022-12-24] MEDS: LORATADINE 10 MG TAB PO SCH (09:00)
[2022-12-24] MEDS: busPIRone 15 MG TAB PO SCH ×2 (09:00→14:06)
[2022-12-24] MEDS: ATORVASTATIN 40 MG TAB PO SCH (09:00)
[2022-12-24] MEDS: lisinopril 5 MG TAB PO SCH (09:00)
[2022-12-24] MEDS: PANTOprazole 40 MG TAB PO SCH (09:00)
[2022-12-24] MEDS: SERTRALINE HCL 50 MG TABLET PO SCH (09:00)
[2022-12-24] MEDS: FAMCICLOVIR 250 MG PO SCH (09:01)
[2022-12-24] MEDS: OLODATEROL HCL 2.5MCG/ACTUATION 60 PUFFS/INHALER INH SCH (09:02)
--- NOTE | 2022-12-24 13:59 | Surgery Progress Note ---
Date of Service December 24, 2022 Assessment & Plan (1) Peripheral arterial disease with history of revascularization: Plan: Postoperative day 2 from left femoral artery endarterectomy with bovine patch angioplasty. She is doing extremely well. Will d/c today. Admission and Anticipated Discharge Date Admission Date: December 22, 2022 Subjective Is a 67-year-old female who underwent a left femoral endarterectomy yesterday. She is doing well and anxious to go home. Physical Exam Physical Exam: Constitutional: In general patient is a healthy-appearing well-nourished well- developed middle-aged female no distress. Is alert and oriented without any focal deficits. Her heart is regular, her lungs are clear. Her abdomen is soft and nontender with normoactive bowel sounds in all 4 quadrants. Brachial and radial pulses are +3. Right femoral pulse is nonpalpable, left femoral pulse +1. Left lower extremity distal pulses +1, right was nonpalpable. Toes demonstrate brisk capillary refill and no sign of distal ischemia. Constitutional: WD/WN, vitals as above Cardiovascular: Vessels: dorsalis pedis pulses present (Palpable on the left.) Skin: + incision (Prevena in place) Neurologic: CN's II-XI intact bilaterally and moves all extremities Psychiatric: Orientation: oriented x 3 Results & Data Vital Signs (Past 12 Hours) Vital Signs Temp Pulse Resp BP Pulse Ox O2 Del Method 12/24/22 06:08 36.7 C 63 16 112/57 L 97 Room Air
--- NOTE | 2022-12-28 14:29 | Discharge Summary ---
Date of Service December 28, 2022 Admission HPI Per Admitting Provider Neyda is an elderly female who presents to Dr. Rascon vascular surgery clinic today for a follow-up visit after undergoing a CTA of the abdomen pelvis with runoff at [facility] to evaluate her aortoiliac and peripheral arterial disease. Patient states that since she was here a month or 2 ago, she feels that her symptoms of claudication may have worsened. She feels that she is walking less than 300 feet before her thighs and calves are causing her pain and she needs to stop. She continues to state that her right leg is worse than her left. She also states a new symptom of having burning sensation in her left foot, but understands that this may be related to more of a nerve/spine issue as she has undergone multiple spinal surgeries in the past. She denies any new ulcerations on the foot, discoloration of the feet, or other new concerns. The CTA abdomen pelvis with runoff which was performed at [facility] does demonstrate significant aortoiliac occlusive disease with a near occlusive lesion of her left common femoral artery, as well as significant stenoses in her bilateral common iliac arteries right worse than left, and significant internal iliac artery disease as well. Admission Exam Per Admitting Provider Constitutional: In general patient is a healthy-appearing well-nourished well- developed middle-aged female no distress. Is alert and oriented without any focal deficits. Her heart is regular, her lungs are clear. Her abdomen is soft and nontender with normoactive bowel sounds in all 4 quadrants. Brachial and radial pulses are +3. Right femoral pulse is nonpalpable, left femoral pulse +1. Left lower extremity distal pulses +1, right was nonpalpable. Toes demonstrate brisk capillary refill and no sign of distal ischemia. Principal Diagnosis 1. s/p L common femoral endarterectomy with patch, aortogram 2. Severe PAD Discharge Exam Constitutional WD/WN, vitals as above Respiratory normal respiratory effort; no respiratory distress Cardiovascular Rate/Rhythm: regular rate and regular rhythm Vessels: dorsalis pedis pulses present (Palpable on the left.) Gastrointestinal (Abdomen) Inspection/Auscultation: abdomen normal to inspection; abdomen not distended Percussion/Palpation: abdomen soft; abdomen nontender Skin + incision (Prevena in place) Neurologic CN's II-XI intact bilaterally and moves all extremities Psychiatric Orientation: oriented x 3 Discharge Data Allergies Allergy/AdvReac Type Severity Reaction Status Date / Time budesonide [From Symbicort] AdvReac Intermediate Shakiness Verified 12/22/22 08:21 formoterol [From Symbicort] AdvReac Intermediate Shakiness Verified 12/22/22 08:21 codeine AdvReac Mild Headache Verified 12/22/22 08:21 levofloxacin AdvReac Mild Diffuse Verified 12/22/22 08:21 tendonitis oats AdvReac Mild Headache Verified 12/22/22 08:21 Procedures Performed Operation Date: 12/22/22 10:00 Actual Procedures p Left Common Femoral Endarterctomy with bovine Patch(Left) - Jeronimo Rascon MD s Bilateral Lower Extremity Angiogram (Bilateral) - Jeronimo Rascon MD Ordered Studies 12/22/22 09:43 EV angio LE BI Routine Hospital Course (1) Peripheral arterial disease with history of revascularization: Postoperative day 2 from left femoral artery endarterectomy with bovine patch angioplasty. She is doing extremely well. Will d/c today. Total Time Total Time Spent Total Time Spent (In Minutes): 0 Discharge Plan Discharge Items Patient Disposition: Home - Self-Care Reason For Visit: Xaortoiliac Occlusive Disease Discharge Diagnosis: Left common femoral artery stenosis Activity: Per Instructions section Non-emergency contact: Surgeon Call non-emergency contact if: your temperature is above 101.5, your wound has increased redness, your wound has increased drainage and your wound pain has increased Follow-up/Referrals: Jeronimo Rascon MD [Physician] - 01/06/23 9:15 am [facility] [Primary Care Provider] - Diet: Heart Healthy Addtl Attending Provider Instructions: ACTIVITY RECOMMENDATIONS: Keep vac dry and clean Ambulate as much as possible Keep leg elevated at rest SPECIAL CARE INSTRUCTIONS: Call your doctor if: * Temperature above 101 degrees * Pain not relieved by pain medicine ordered * There is increased drainage or redness from any incision * You have any unanswered questions or concerns. Call [phone] to schedule a follow up appointment if one not already scheduled. Pending Studies at Discharge: No Stand-Alone Forms: [employer], Smoking Cessation Medications and DC Order Prescriptions: New oxycodone-acetaminophen [Percocet] 5-325 mg tablet 1 tab PO Q4H PRN (Reason: pain) Qty: 30 0RF Continued cefadroxil 500 mg capsule 500 mg PO DAILY methylprednisolone [Medrol (Bruno)] 4 mg tablets,dose pack 4 mg PO DAILY Qty: 21 0RF Rx Instructions: Use as directed buspirone 15 mg Tablet 15 mg PO TID bupropion HCl 300 mg Tablet Extended Release 24 Hr 300 mg PO HS Calcium 600 + D(3) 600 mg calcium- 200 unit Capsule 1 cap PO QPM cholecalciferol (vitamin D3) [Vitamin D3] 1,000 unit Tablet 1,000 unit PO Q2D multivitamin Tablet 1 tab PO QAM methocarbamol 500 mg Tablet 500 mg PO TID PRN (Reason: Muscle Spasm) famciclovir 250 mg Tablet 250 mg PO BID lorazepam 0.5 mg Tablet 0.5 mg PO TID PRN (Reason: Anxiety) loratadine 10 mg Capsule 10 mg PO QAM Striverdi Respimat 2.5 mcg/actuation Mist 2 inh INHALATION QAM Combivent Respimat 20-100 mcg/actuation Mist 1 puff INHALATION Q4H PRN (Reason: Wheezing) quetiapine [Seroquel] 100 mg Tablet 200 mg PO HS sertraline 50 mg Tablet 50 mg PO QAM omeprazole 20 mg Tablet,Delayed Release (Dr/Ec) 20 mg PO BID naloxone 0.4 mg/mL Solution 4 mg intranasal DAILY PRN (Reason: Opiate Reversal) lisinopril 5 mg Tablet 5 mg PO QAM atorvastatin 20 mg Tablet 40 mg PO QAM cephalexin 500 mg capsule 500 mg PO HS melatonin 3 mg Capsule 9 mg PO HS Epidiolex 1 tab PO DAILY PRN (Reason: migraines) Rx Instructions: if the the imitrex does not stop the migraine topiramate [Topamax] 25 mg Tablet 25 mg PO HS Discharge Orders: Discharge Order (Routine); Ordered 12/24/22 Ordered By: Jeronimo Rascon Admission Data Admit Date/Time: 12/22/22 09:07 Attending Provider: Jeronimo Rascon Admit Provider: Jeronimo Rascon Primary Care Provider: [facility] Other Interventions: Discharge Summary Assessment (RN) Last Done: 12/24/22 14:10
== END 2022-12-24 14:36 | disposition home or self-care (01) | DRG 254 ==
LOC: ASU 07:57 → PACUINP 09:07 → 3E 15:14

== ENCOUNTER 2024-09-24 09:40 | Inpatient (IN) ==
--- NOTE | 2024-09-04 10:16 | PAT Medication Instructions ---
Medication Instructions Date of Service September 04, 2024 Home Medications Medication Instructions Recorded oxycodone 5 mg tablet 5 mg PO Q8H PRN pain #9 tabs 07/30/24 bupropion HCl 300 mg 24 hr tablet, extended release 300 mg PO QAM famciclovir 250 mg tablet 250 mg PO BID loratadine 10 mg capsule 10 mg PO QAM lorazepam 0.5 mg tablet 0.5 mg PO TID PRN Anxiety methocarbamol 500 mg tablet 500 mg PO TID PRN Muscle Spasm multivitamin 1 tab PO QAM omeprazole 20 mg tablet,delayed release 20 mg PO BID quetiapine 100 mg tablet (Seroquel) 200 mg PO HS naloxone 0.4 mg/mL injection solution 4 mg intranasal DAILY PRN Opiate Reversal melatonin 3 mg capsule 9 mg PO HS cefadroxil 500 mg capsule 500 mg PO QAM topiramate 25 mg tablet (Topamax) 25 mg PO HS aspirin 81 mg tablet 81 mg PO QAM albuterol sulfate 90 mcg/actuation aerosol inhaler 2 puff inhalation Q6H PRN Shortness Of Breath oxycodone 5 mg tablet 5 mg PO Q8H PRN pain Medical Marijuana 1 dose inhalation UD PRN Anxiety acetaminophen 325 mg tablet 650 mg PO QID PRN Pain atorvastatin 80 mg tablet 80 mg PO HS buspirone 30 mg tablet 30 mg PO BID lisinopril 20 mg tablet 20 mg PO QAM nut.tx.gluc.intol,lac-free,soy (Glucerna oral liquid) 1 ea PO BID olodaterol 2.5 mcg/actuation mist for inhalation 2 inh inhalation QAM riboflavin (vitamin B2) 100 mg capsule 200 mg PO BID rizatriptan 10 mg disintegrating tablet 10 mg PO USEASDIRECTD PRN Migraine Headache sertraline 100 mg tablet 50 mg PO QAM trazodone 50 mg tablet 50 mg PO HS PRN Sleep Continue as directed naloxone 0.4 mg/mL injection solution 4 mg intranasal DAILY PRN Opiate Reversal (if needed) cefadroxil 500 mg capsule 500 mg PO QAM DO NOT take the morning of surgery loratadine 10 mg capsule 10 mg PO QAM multivitamin 1 tab PO QAM Medical Marijuana 1 dose inhalation UD PRN Anxiety lisinopril 20 mg tablet 20 mg PO QAM nut.tx.gluc.intol,lac-free,soy (Glucerna oral liquid) 1 ea PO BID riboflavin (vitamin B2) 100 mg capsule 200 mg PO BID Take morning of surgery With a small sip of water, OTHERWISE NOTHING TO EAT OR DRINK AFTER MIDNIGHT: bupropion HCl 300 mg 24 hr tablet, extended release 300 mg PO QAM famciclovir 250 mg tablet 250 mg PO BID lorazepam 0.5 mg tablet 0.5 mg PO TID PRN Anxiety (if needed) methocarbamol 500 mg tablet 500 mg PO TID PRN Muscle Spasm (if needed) omeprazole 20 mg tablet,delayed release 20 mg PO BID aspirin 81 mg tablet 81 mg PO QAM (unless surgeon directed otherwise) albuterol sulfate 90 mcg/actuation aerosol inhaler 2 puff inhalation Q6H PRN Shortness Of Breath (use if needed; please bring with you to hospital day of surgery if possible) oxycodone 5 mg tablet 5 mg PO Q8H PRN pain (if needed) acetaminophen 325 mg tablet 650 mg PO QID PRN Pain (if needed) buspirone 30 mg tablet 30 mg PO BID olodaterol 2.5 mcg/actuation mist for inhalation 2 inh inhalation QAM rizatriptan 10 mg disintegrating tablet 10 mg PO USEASDIRECTD PRN Migraine Headache (if needed) sertraline 100 mg tablet 50 mg PO QAM Take evening before surgery famciclovir 250 mg tablet 250 mg PO BID lorazepam 0.5 mg tablet 0.5 mg PO TID PRN Anxiety (if needed) methocarbamol 500 mg tablet 500 mg PO TID PRN Muscle Spasm (if needed) omeprazole 20 mg tablet,delayed release 20 mg PO BID quetiapine 100 mg tablet (Seroquel) 200 mg PO HS melatonin 3 mg capsule 9 mg PO HS topiramate 25 mg tablet (Topamax) 25 mg PO HS albuterol sulfate 90 mcg/actuation aerosol inhaler 2 puff inhalation Q6H PRN Shortness Of Breath (if needed) oxycodone 5 mg tablet 5 mg PO Q8H PRN pain (if needed) Medical Marijuana 1 dose inhalation UD PRN Anxiety (if needed) acetaminophen 325 mg tablet 650 mg PO QID PRN Pain (if needed) atorvastatin 80 mg tablet 80 mg PO HS buspirone 30 mg tablet 30 mg PO BID nut.tx.gluc.intol,lac-free,soy (Glucerna oral liquid) 1 ea PO BID riboflavin (vitamin B2) 100 mg capsule 200 mg PO BID rizatriptan 10 mg disintegrating tablet 10 mg PO USEASDIRECTD PRN Migraine Headache (if needed) trazodone 50 mg tablet 50 mg PO HS PRN Sleep (if needed) Other Notes If you have any questions please call us at [phone] or [phone] or [phone] or [phone]
--- NOTE | 2024-09-11 11:30 | Anesthesiology Consultation ---
Date of Service September 11, 2024 Assessment & Plan (1) Encounter for pre-operative examination: Plan - will request most recent [facility] cardiology and neurology office notes. - check BSG am DOS. - medical clearance 08/29/24: "...low to moderate risk...cleared for scheduled surgery..." office note 08/22/24: "...reports her blood sugar has been stable without hypoglycemia...last seen by cardiology 06/25/2024 with reassuring same day EKG and recommendation for one year follow up...estimated perioperative cardiac risk is 0.1%...above average pulmonary risk...overall low to moderate risk...history of hypoglycemia with fasting, I do recommend great caution with this perioperatively and she has clear gel she may use if needed for BG < 70 mg/dl...cardiology provided the following statement on 08/29/24 she is deemed to be medically optimized from a cardiac standpoint and can proceed with her surgery as planned..." OR made aware of requested early arrival time due to hypoglycemia, will check BSG am DOS. Patient has pre-op packet with instructions if hypoglycemia occurs. Chart Review Chart Review: Pending: Refer to Additional Notes / Consult section and Patient seen in Pre Admission Testing Teaching & Discussion Pre-Anesthesia Teaching/Discussion Notes: Instructed NPO after midnight before surgery, except medications with 15 cc of water. Medication instructions provided according to the PAT guidelines. History Surgery Operation Date: 09/24/24 07:45 Proposed Procedures p Removal Hardware L4-S1, L2-L4 Decompression, Fusion L2-S1, with Spinal Cord Monitoring - Flako Mcghee, Height/Weight Height: 5 ft 1 in Weight: 45.9 kg Allergies Allergy/AdvReac Type Severity Reaction Status Date / Time fentanyl Allergy [facility] Verified 09/11/24 11:52 records gabapentin AdvReac Severe can't Verified 09/11/24 11:26 remember details-states had memory loss/confusion budesonide [From Symbicort] AdvReac Intermediate Shakiness Verified 09/04/24 09:06 formoterol [From Symbicort] AdvReac Intermediate Shakiness Verified 09/04/24 09:06 codeine AdvReac Mild Headache Verified 09/04/24 09:06 levofloxacin AdvReac Mild Diffuse Verified 09/04/24 09:06 tendonitis morphine AdvReac Mild Headache, Unverified 09/11/24 11:26 vomiting oats AdvReac Mild Headache Verified 09/04/24 09:06 Medications Home Medications Medication Instructions Recorded Confirmed Last Taken bupropion HCl 300 mg 24 hr tablet, 300 mg PO QAM 08/22/18 09/04/24 02/07/23 extended release famciclovir 250 mg tablet 250 mg PO BID 08/22/18 09/04/24 02/08/23 loratadine 10 mg capsule 10 mg PO QAM 08/22/18 09/04/24 02/08/23 lorazepam 0.5 mg tablet 0.5 mg PO TID PRN Anxiety 08/22/18 09/04/24 12/18/22 methocarbamol 500 mg tablet 500 mg PO TID PRN Muscle Spasm 08/22/18 09/04/24 12/21/22 20:30 multivitamin 1 tab PO QAM 08/22/18 09/04/24 02/08/23 omeprazole 20 mg tablet,delayed 20 mg PO BID 08/22/18 09/04/24 02/08/23 release quetiapine 100 mg tablet (Seroquel) 200 mg PO HS 08/22/18 09/04/24 02/07/23 naloxone 0.4 mg/mL injection 4 mg intranasal DAILY PRN Opiate 04/14/20 09/04/24 Unknown solution Reversal melatonin 3 mg capsule 9 mg PO HS 11/18/22 09/04/24 02/07/23 cefadroxil 500 mg capsule 500 mg PO QAM 12/03/22 09/04/24 02/07/23 topiramate 25 mg tablet (Topamax) 25 mg PO HS 12/22/22 09/04/24 02/07/23 aspirin 81 mg tablet 81 mg PO QAM 02/08/23 09/04/24 02/07/23 albuterol sulfate 90 mcg/actuation 2 puff inhalation Q6H PRN 03/09/23 09/04/24 Unknown aerosol inhaler Shortness Of Breath oxycodone 5 mg tablet 5 mg PO Q8H PRN pain #9 tabs 07/30/24 09/04/24 Unknown Medical Marijuana 1 dose inhalation UD PRN Anxiety 09/04/24 09/04/24 Unknown acetaminophen 325 mg tablet 650 mg PO QID PRN Pain 09/04/24 09/04/24 Unknown atorvastatin 80 mg tablet 80 mg PO HS 09/04/24 09/04/24 Unknown buspirone 30 mg tablet 30 mg PO BID 09/04/24 09/04/24 Unknown lisinopril 20 mg tablet 20 mg PO QAM 09/04/24 09/04/24 Unknown nut.tx.gluc.intol,lac-free,soy 1 ea PO BID 09/04/24 09/04/24 Unknown (Glucerna oral liquid) olodaterol 2.5 mcg/actuation mist 2 inh inhalation QAM 09/04/24 09/04/24 Unknown for inhalation riboflavin (vitamin B2) 100 mg 200 mg PO BID 09/04/24 09/04/24 Unknown capsule rizatriptan 10 mg disintegrating 10 mg PO USEASDIRECTD PRN Migraine 09/04/24 09/04/24 Unknown tablet Headache sertraline 100 mg tablet 50 mg PO QAM 09/04/24 09/04/24 Unknown trazodone 50 mg tablet 50 mg PO HS PRN Sleep 09/04/24 09/04/24 Unknown Past Medical History Medical History (Updated 09/11/24 @ 11:27 by Yvonne Wilson PA-C) Abscess Hx lumbar abscess (10+ years ago) 2/2 indwelling hardware, follows with infectious disease, chronic lifelong suppressive therapy with cefadroxil rec'd, no acute issues >followed by infectious disease in [place] Dr. Figueroa Anxiety and depression Aortoiliac occlusive disease Chronic back pain LLE radiculopathy Chronic obstructive pulmonary disease controlled, stable per pt; last albuterol inhaler use several months ago Cold sore Taking famcyclovir preventatively/no recent issues Hiatal hernia History of blood transfusion lynette-operative cholecystectomy History of infection with vancomycin resistant Enterococcus (VRE) UTI (2016) in [place] > no current issues Hx of cervical cancer (1978) hysterectomy only +uterine cancer Hx of sleep apnea untreated Hyperlipidemia Hypertension controlled, stable per pt Hypoglycemia Low gammaglobulin level anemia>IGA infusions every 6 weeks November to July (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 Exercise / Class Metabolic Activity II 4-5 Yardwork/Stairs/Walk up hill (denies chest discomfort or shortness of breath with one flight of stairs) Past Family History Family History Aunt Family history of diabetes mellitus Aunt Family history of diabetes mellitus Mother Family history of diabetes mellitus Myocardial infarction Past Surgical History Surgical History (Updated 09/11/24 @ 11:28 by Yvonne Wilson PA-C) Fusion of spine Lumbar x2 H/O abdominoplasty History of arthroscopy Left shoulder arthroscopy (04/30/20): Grade 2 view, MAC 3.0, ETT 7.0 + PNB at [facility] History of bronchoscopy History of bunionectomy right History of cardiac cath (2022) CT-denies any stents History of carpal tunnel surgery right History of cholecystectomy History of colonoscopy History of esophagogastroduodenoscopy (EGD) History of gastric bypass 2003 History of hysterectomy History of open reduction and internal fixation (ORIF) procedure Right ankle History of tonsillectomy History of tooth extraction History of total replacement of right shoulder joint Peripheral arterial disease with history of revascularization left leg>Dr. Rascon at [place] Vocal cord polyp Removal Past Anesthesia History No Hx of Anesthesia Complications and No Family Hx of Anesthesia Complications History of PONV No Hx of PONV and No Hx of Motion Sickness Social History Smoking Status: Former smoker Do You Dip or Chew Tobacco: No Smoking End Date: 2014 Hx Alcohol Use: No Hx Substance Use: No substance use type: does not use Review of Systems Patient denies chest pain, shortness of breath, dyspnea on exertion, fever, chills, cough, wheezing, or palpitations. Physical Exam Vital Signs Vitals BP 122/64 P 74 TEMP 98.7 SP02 98% on RA RESP 18 Physical Patient resting comfortably in chair in no acute distress, alert and oriented, responding appropriately throughout visit Full cervical extension range of motion without pain TMD 3.5 finger breadths Mallampati Score 2 Dentition: edentulous, full upper and lower dentures Lungs: normal respiratory effort. Good air movement, clear throughout to auscultation, no adventitious breath sounds Cardiac: regular rate and rhythm, no murmurs noted Carotid arteries: negative bruit bilat Lab Results Anesthesia Preop Results Results Anesthesia Widget: Urine Color Dark Yellow 09/11/24 Urine Appearance Clear (Clear) 09/11/24 Urine pH 5.5 (4.5-7.5) 09/11/24 Urine Specific Revere 1.017 (1.000-1.030) 09/11/24 Urine Protein Trace (Negative) H 09/11/24 Urine Glucose (UA) Negative (Negative) 09/11/24 Urine Ketones Negative (Negative) 09/11/24 Urine Blood Negative (Negative) 09/11/24 Urine Nitrite Negative (Negative) 09/11/24 Urine Bilirubin Negative (Negative) 09/11/24 Urine Urobilinogen Negative (Negative) 09/11/24 Urine Leukocyte Esterase Trace (Negative) H 09/11/24 Urine WBC (Auto) 0-5 /hpf (0-5) 09/11/24 Urine RBC (Auto) 0-2 /hpf (0-2) 09/11/24 Urine Hyaline Casts (Auto) 0-2 /lpf (0-2) 09/11/24 Urine Epithelial Cells (Auto) 3-5 /hpf (0-2) H 09/11/24 Urine Bacteria (Auto) None Seen (None Seen) 09/11/24 Blood Type A Negative 09/11/24 Antibody Screen NEGATIVE 09/11/24 Testing Laboratory Results 08/07/24 WBC: 8.5 H/H: 14/42 PLATELETS: 208,000 SODIUM: 138 POTASSIUM: 4.5 CHLORIDE: 107 CO2: 23 BUN: 13 CREATININE: 1 GLUCOSE: 120 Alk phos: 69 AST: 21 ALT: 17 PT: 12.7 INR: 0.9 PTT: 26 A1c: 5.7% Electrocardiogram Date: 08/22/24 Sinus bradycardia, rate 58 bpm Chest X-Ray Date: 08/22/24 No evidence of acute cardiopulmonary disease. Echocardiogram Date: 08/28/24 EF 60-65% All segments contract normally Mildly dilated LA Mild mitral annular calcification, mild mitral regurgitation-no evidence of mitral stenosis Stress Test Date: 11/23/22 1. Raw data analysis demonstrates heterogenous uptake, mild movement artifact, and increased GI uptake. This study is adequate for interpretation but not optimal. 2. Gated myocardial perfusion imaging demonstrates mild inferior hypokinesis. EF mildly reduced calculated at 47%. 3. There is a medium in size, mild to moderate intensity reversible MPI defect involving the basal and mid inferior and inferior septal myocardium. These findings are consistent with mild to moderate RCA territory ischemia plus or minus artifact. 4. Study is moderately abnormal. There are technical limitations, however, findings suggest moderate ischemia. Recommend consider definitive evaluation by coronary angiography. Cardiac Catheterization Date: 12/08/22 [id number] vessel bifurcating into LAD and circumflex. Ostial heavy calcification then with mild diffuse calcification. Distally there is up to 30% stenosis. LAD-large caliber and transapical. Mild to moderate calcification in the proximal and mid vessel. Proximal segment with mild diffuse disease. Provides a large septal trunk which has ostial 40% stenosis and a small first diagonal. Mid LAD has mild luminal irregularities. There is a large caliber branching second diagonal with ostial 50% stenosis. After the D2 the distal LAD has a longer eccentric stenosis of up to 50%. Then there is no more than mild luminal irregularities. [id number] nondominant. Proximal segment with mild luminal irregularities. Provides a high arising small caliber OM1 with ostial 50 to 70% stenosis. Mid segment has mild luminal irregularities as it traverses AV groove and then it provides a large caliber branching OM 2. This vessel has proximal and mid mild disease of less than 30% stenosis. Distal AV groove circumflex is small and terminates. RCA-medium to large caliber dominant vessel. There is moderate calcification in the proximal and mid vessel. There is scattered mild less than 20 to 30% stenosis throughout the RCA with a focal calcified distal stenosis of 30% to 40%. Vessel bifurcates after this lesion into the PDA and the posterolateral branch. Each of these vessels is medium in caliber with mild calcification present in the posterior lateral branch. They have no significant disease.
[2024-09-24] MEDS ORDERED: PROPOFOL IV EMULSION 10 MG/ML 20 ML VIAL IV ONE (09:53)
[2024-09-24] MEDS ORDERED: LIDOCAINE 2% 2 ML VIAL/AMP(20MG/ML) INFIL ONE (09:53)
[2024-09-24] MEDS ORDERED: DexMEDEtomidine HCL IV 100 MCG/ML VIAL IV ONE ×2 (09:53→11:23)
[2024-09-24] MEDS ORDERED: ROCURONIUM BROMIDE 10 MG/ML 5 ML VIAL IV ONE ×2 (09:53→12:04)
[2024-09-24] MEDS ORDERED: MIDAZOLAM HCL 1 MG/ML 2ML VIAL ONE (09:53)
[2024-09-24] MEDS ORDERED: KETAMINE HCL 10MG/ML SYR ONE (09:53)
[2024-09-24] MEDS ORDERED: ONDANSETRON INJ 2 MG/ML 2 ML VIAL ONE (09:55)
[2024-09-24] MEDS ORDERED: DEXAMETHASONE SOD INJ 4 MG/ML VIAL ONE (09:55)
[2024-09-24] MEDS: ACETAMINOPHEN 500 MG TAB PO SCH (10:07)
[2024-09-24] MEDS: LR 60ML/HR IV SCH (10:08)
[2024-09-24] MEDS: CeleBREX 200 MG CAP PO SCH (10:08)
[2024-09-24] MEDS: LR 15ML/HR IV SCH (10:25)
[2024-09-24] MEDS ORDERED: HYDROmorphone INJ 2 MG/ML SYR/VIAL IV PRN (10:42)
[2024-09-24] MEDS ORDERED: ONDANSETRON INJ 2 MG/ML 2 ML VIAL IV PRN (10:42)
[2024-09-24] MEDS ORDERED: ATROPINE SULFATE 0.1 MG/ML 10ML SYR IV PRN (10:42)
--- NOTE | 2024-09-24 11:10 | History & Physical Bridge Note ---
Date of Service September 24, 2024 History & Physical Bridge Note I have examined the patient, reviewed the History & Physical and in the interval since the performance of the History & Physical I have noted the following changes of clinical significance: no changes noted
--- NOTE | 2024-09-24 11:12 | History & Physical Report ---
Date of Service September 24, 2024 Assessment & Plan (1) Other spondylosis with radiculopathy, lumbar region: Plan: Removal hardware L4-S1, L2-L4 decompression, fusion L2-S1 History of Present Illness Chief Complaint: Back and leg pain Primary Care Provider: Portillo Sol MD This is a 69-year-old female that presents with persistent back and leg pain after failing since course of nonoperative care is here for surgical intervention. Allergies Allergy/AdvReac Type Severity Reaction Status Date / Time fentanyl [facility]ergy [facility] Verified 09/24/24 10:00 records gabapentin AdvReac Severe can't Verified 09/24/24 10:00 remember details-states had memory loss/confusion budesonide [From Symbicort] AdvReac Intermediate Shakiness Verified 09/24/24 10:00 formoterol [From Symbicort] AdvReac Intermediate Shakiness Verified 09/24/24 10:00 codeine AdvReac Mild Headache Verified 09/24/24 10:00 levofloxacin AdvReac Mild Diffuse Verified 09/24/24 10:00 tendonitis morphine AdvReac Mild Headache, Verified 09/24/24 10:00 vomiting oats AdvReac Mild Headache Verified 09/24/24 10:00 Home Medications Medication Instructions Recorded Confirmed Type bupropion HCl 300 mg 24 hr tablet, 300 mg PO QAM 08/22/18 09/24/24 History extended release famciclovir 250 mg tablet 250 mg PO BID 08/22/18 09/24/24 History loratadine 10 mg capsule 10 mg PO QAM 08/22/18 09/24/24 History lorazepam 0.5 mg tablet 0.5 mg PO TID PRN Anxiety 08/22/18 09/24/24 History methocarbamol 500 mg tablet 500 mg PO TID PRN Muscle Spasm 08/22/18 09/24/24 History multivitamin 1 tab PO QAM 08/22/18 09/24/24 History omeprazole 20 mg tablet,delayed 20 mg PO BID 08/22/18 09/24/24 History release quetiapine 100 mg tablet (Seroquel) 200 mg PO HS 08/22/18 09/24/24 History naloxone 0.4 mg/mL injection 4 mg intranasal DAILY PRN Opiate 04/14/20 09/24/24 History solution Reversal melatonin 3 mg capsule 9 mg PO HS 11/18/22 09/24/24 History cefadroxil 500 mg capsule 500 mg PO QAM 12/03/22 09/24/24 History topiramate 25 mg tablet (Topamax) 25 mg PO HS 12/22/22 09/24/24 History aspirin 81 mg tablet 81 mg PO QAM 02/08/23 09/24/24 History albuterol sulfate 90 mcg/actuation 2 puff inhalation Q6H PRN 03/09/23 09/24/24 History aerosol inhaler Shortness Of Breath oxycodone 5 mg tablet 5 mg PO Q8H PRN pain #9 tabs 07/30/24 09/24/24 Rx Medical Marijuana 1 dose inhalation UD PRN Anxiety 09/04/24 09/24/24 History acetaminophen 325 mg tablet 650 mg PO QID PRN Pain 09/04/24 09/24/24 History atorvastatin 80 mg tablet 80 mg PO HS 09/04/24 09/24/24 History buspirone 30 mg tablet 30 mg PO BID 09/04/24 09/24/24 History lisinopril 20 mg tablet 20 mg PO QAM 09/04/24 09/04/24 History nut.tx.gluc.intol,lac-free,soy 1 ea PO BID 09/04/24 09/24/24 History (Glucerna oral liquid) olodaterol 2.5 mcg/actuation mist 2 inh inhalation QAM 09/04/24 09/24/24 History for inhalation riboflavin (vitamin B2) 100 mg 200 mg PO BID 09/04/24 09/24/24 History capsule rizatriptan 10 mg disintegrating 10 mg PO USEASDIRECTD PRN Migraine 09/04/24 09/24/24 History tablet Headache sertraline 100 mg tablet 50 mg PO QAM 09/04/24 09/24/24 History trazodone 50 mg tablet 50 mg PO HS PRN Sleep 09/04/24 09/24/24 History Past Med/Surg History Problem List (Updated 09/24/24 @ 11:11 by Flako Mcghee DO) Other spondylosis with radiculopathy, lumbar region Osteoporosis Migraines Paget's bone disease Peripheral arterial disease with history of revascularization Atherogenic dyslipidemia Chronic antibiotic suppression GERD (gastroesophageal reflux disease) PTSD (post-traumatic stress disorder) Lumbar stenosis with neurogenic claudication (Acute) COPD (chronic obstructive pulmonary disease) (Chronic) Hypertension (Chronic) Medical History (Updated 09/24/24 @ 11:11 by Flako Mcghee DO) CAD (coronary artery disease) moderate per cardio records History of blood transfusion lynette-operative cholecystectomy Aortoiliac occlusive disease Medical marijuana use prn anxiety Paget's bone disease hip area Osteoporosis Hypoglycemia Hx of cervical cancer (1978) hysterectomy only +uterine cancer Low gammaglobulin level anemia>IGA infusions every 6 weeks November to July (follow[facility] by 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, last episode months ago>followed by [place] neurologist Migraine Hypertension controlled, stable per pt Hyperlipidemia Hx of sleep apnea untreated Chronic obstructive pulmonary disease controlled, stable per pt; last albuterol inhaler use several months ago History of infection with vancomycin resistant Enterococcus (VRE) UTI (2015) in [place] > no current issues TBI (traumatic brain injury) + approximately 2020 (after mechanical fall/hit head) - "very forgetful" Abscess Hx lumbar abscess (10+ years ago) 2/2 indwelling hardware, follows with infectious disease, chronic lifelong suppressive therapy with cefadroxil rec'd, no acute issues >followed by infectious disease in [place] Dr. Figueroa Cold sore Taking famcyclovir preventatively/no recent issues Chronic back pain LLE radiculopathy Osteoarthritis Hiatal hernia Surgical History History of tonsillectomy History of bunionectomy right History of total replacement of right shoulder joint Peripheral arterial disease with history of revascularization left leg>Dr. Rascon at [place] History of cardiac cath (2022) [place]-denies any stents History of bronchoscopy History of carpal tunnel surgery right History of tooth extraction History of colonoscopy History of esophagogastroduodenoscopy (EGD) History of arthroscopy Left shoulder arthroscopy (04/30/20): Grade 2 view, MAC 3.0, ETT 7.0 + PNB at [facility] History of open reduction and internal fixation (ORIF) procedure Right ankle Vocal cord polyp Removal History of cholecystectomy History of gastric bypass 2003 H/O abdominoplasty History of hysterectomy Fusion of spine Lumbar x2 Family History Aunt Family history of diabetes mellitus Aunt Family history of diabetes mellitus Mother Family history of diabetes mellitus Myocardial infarction Social History Smoking Status: Former smoker Tobacco Type: Cigarettes Smoking End Date: 2014; Second Hand Exposure: No; Do You Dip or Chew Tobacco: No; Hx Alcohol Use: No Hx Substance Use: No Preferred Language: Algerian Communication Ability: Effective Class 1 Owner Operator Required: No Beliefs That Will Affect Care: None Current Living Situation: Alone Feels Safe at Home: Yes Safety Concerns: Feels Safe At This Time Assistive Devices: Denture - Upper, Denture - Lower and Glasses Physical Exam Physical Exam: Patient was alert and oriented Heart regular rhythm Lungs clear Results & Data Results & Data Vital Signs (Past 12 Hours) Vital Signs Temp Pulse Resp BP Pulse Ox O2 Del Method 09/24/24 09:51 37.2 C 64 20 128/65 99 Room Air
[2024-09-24] MEDS ORDERED: SUCCINYLCHOLINE CHLORIDE 20 MG/ML 10 ML VIAL IV ONE (11:25)
[2024-09-24] MEDS: ceFAZolin 330 MG/ML 1 GM VIAL ONE (12:21)
[2024-09-24] MEDS: BUPIVACAINE/EPINEPHRINE 0.25% 1:200,000 30 ML VIAL ONE (12:21)
[2024-09-24] MEDS ORDERED: HYDROmorphone INJ 2 MG/ML SYR/VIAL ONE (13:01)
[2024-09-24] MEDS ORDERED: SUGAMMADEX SODIUM 200 MG/2 ML VIAL IV ONE ×2 (13:16→13:21)
[2024-09-24] MEDS: FLOSEAL HEMOSTATIC MATRIX 10ML TOP ONE (13:26)
--- NOTE | 2024-09-24 13:27 | Operative Report ---
Post Operative Report Pre & Post Diagnosis Operation Date: 09/24/24 10:55 Pre-Op Diagnosis: #1 lumbar spondylosis with radiculopathy #2 lumbar spinal stenosis Post-Op Diagnosis: Same I identified the patient and participated in the time-out.: Yes Procedure Operation Date: 09/24/24 10:55 Actual Procedures #1 removal of posterior instrumentation L4-S1. #2 exploration of fusion L4-S1. #3 lumbar decompression with bilateral medial facetectomies and foraminotomies L2-L3 L3-L4. #4 posterior spinal fusion L2-L4. #5 placement posterior instrumentation L2-S1 using Carlin 6 interbody fusion L2-L3 L3-L4. #7 placement Spira 9 x 26 mm at L2-L3 and 11 x 26 mm at L3-L4. #8 placement of locally harvested morselized autograft in the posterior gutters. #9 please infuse collagen sponge bath Koros in the posterior lateral gutters and os design and interbody space. #10 application of versa wrap of the exposed dura. Surgeon Flako Mcghee, Parts Advisor Mercy Shankar Estimated Blood Loss 160 Findings Consistent with Post-Op Diagnosis Specimens None Indications This is a 69-year-old female who presents with manage diagnosis of failed course of nonoperative care she is here for surgical invention. Description of Procedure Patient was met with identified informed consent obtained. Patient was then taken to the operative suite underwent intubation placed in a prone position on the Cody table atop the Madhav frame. All bony prominences well-padded I suspected to ensure no external precipice upon them. This point lumbar spine was prepped and draped in normal sterile fashion. Sharp dissection with the assistance of Bovie cautery from down to expose the lamina and transverse processes of L2-L3 and instrumentation at L4-L5 and S1 levels bilaterally. I proceeded remove the hardware bilaterally explored the fusion mass noting to be mature and intact. Informed complete laminectomy of L3 with bilateral medial facetectomies and foraminotomies addressing severe neural compression followed by complete laminectomy of L2 with bilateral facetectomies and foraminotomies addressing all neural compression. Pedicle screws then placed in L2-L3-L4 and S1 levels bilaterally with assistance of fluoroscopy the process allie contoured and placed. By way of transfer approach on the right a complete discectomy of L3-L4 was performed endplates corrected to subcortical bony bone and 11 x 26 mm spiral cage filled with os design bone graft after position. Then proceeded to L2-L3 and by way of a transforaminal approach on the left a complete discectomy was performed. Endplates guided to subcortically bone. A 9 x 26 mm spiral cage filled with os design bone graft tapped in position. Rods were then locked in final position bilaterally. The transverse processes of L2-L3-L4 burred to subcortical bony bone. Infuse collagen sponge bath Koros and local autograft placed in posterior gutters. First wrap placed over the exposed dura. 15 round CINDY drain inserted. The incision was then closed with 1 Vicryl fascia 2-0 Vicryl subcutaneously and 4 Monocryl for final skin closure. Steri-Strips sterile dressing placed. Patient waken taken to PACU in stable condition. Please note Mercy Shankar was present at the entire procedure and on the patient positioning complex portion of the surgery and fashion closure. Im ordering 10 grams of Collagen Powder (HCPCS A6010 Primary Dressing) and 10 bordered super absorbent (HCPCS A6196 Secondary Dressing) to treat an incision wound that was caused by a spine procedure. The incision is approximately 2 cm(W) x 2 cm(L) down to the spinal column and epidural space 2 cm (D) in size and is a full thickness wound showing no signs of infection. Collagen comes in 1 gram packets so 10 packets were ordered. Given the size of the wound, with moderate exudate I chose to order a 10 day supply. The patient will be provided instructions for proper application of the collagen wound kit. The patient will be asked to apply the collagen powder daily and then cover it with sterile dressings dispensed. Collagen was selected as I expect the collagen to attract monocytes and fibroblasts, act as a sacrificial substrate for MMPs, and ultimately proved a matrix for tissue and vessel growth. The collagen will act as a primary dressin g in this scenario. It is medically necessary for proper healing of these wounds to improve bioavailability and contact with each wound surface, this is also to help prevent infection of wounds and promote healing ultimately leading to a better healing outcome and limit the risk of infection. I attest to the content of the Intraoperative Record and any orders documented therein. Any exceptions are noted below.
[2024-09-24] MEDS: HYDROmorphone INJ 1 MG/ML SYRINGE IV PRN (13:56)
--- NOTE | 2024-09-24 14:02 | Anesthesiology Progress Note ---
Date of Service September 24, 2024 Anesthesia Post Procedure Vital Signs Vital Signs: Temp Pulse Resp BP Pulse Ox O2 Del Method 09/24/24 09:51 37.2 C 64 20 128/65 99 Room Air Pain Intensity Bilateral Back: Pain Intensity: 5 Transfer of Care Handoff Completed per policy Notes Mental Status: alert / awake / arousable Patient Amnestic to Procedure: Yes Nausea / Vomiting: adequately controlled Pain: adequately controlled Airway Patency, RR, SpO2: stable & adequate BP & HR: stable & adequate Hydration State: stable & adequate Anesthetic Complications: no major complications apparent and Pt Satisfied with anesthetic care
--- NOTE | 2024-09-24 14:17 | Fluoroscopy Report ---
FL lumbar spine 2-3V CLINICAL HISTORY: L4-S1 HW REMOVAL L2-L4 DECOMP L2-S1 FUSION COMPARISON STUDY: Radiographs 07/30/2024 FLUOROSCOPY TIME: 18.5 seconds FLUOROSCOPY IMAGES: 2 EXPOSURE DOSE: 8.01 mGy FINDINGS: Multilevel discectomy with posterior interbody allie and screw fusion hardware is noted throu ghout the lumbosacral spine which appears to extend from L2-S1 with removal of the L5 screws. No unex pected opaque foreign bodies. Note that the images were submitted following completion of the surgery . The hardware appears intact. IMPRESSION: Fluoroscopic assistance as above. ACT 112: Negative or not required by law. Electronically signed by: Omkar Brown M.D. 09/24/2024 2:15 PM
[2024-09-24] MEDS ORDERED: ALBUTEROL HFA 8 GM INHALER INH PRN (14:47)
[2024-09-24] MEDS ORDERED: ACETAMINOPHEN 500 MG TAB PO PRN (14:47)
[2024-09-24] MEDS ORDERED: diphenhydrAMINE Capsule 25 MG CAP PO PRN (14:47)
[2024-09-24] MEDS ORDERED: ACETAMINOPHEN 1,000 MG/100 ML VIAL IV PRN (14:47)
[2024-09-24] MEDS ORDERED: MAGNESIUM HYDROXIDE SUSP 30 ML UDC PO PRN (14:47)
[2024-09-24] MEDS ORDERED: LORazepam 0.5 MG TAB PO PRN (14:47)
[2024-09-24] MEDS ORDERED: METOCLOPRAMIDE HCL INJ 5 MG/ML 2 ML VIAL IV PRN (14:47)
[2024-09-24] MEDS ORDERED: DO NOT ADMINISTER FLU VACCINE PRN (14:47)
[2024-09-24] MEDS ORDERED: FAMOTIDINE 20 MG TAB PO PRN (14:47)
[2024-09-24] MEDS ORDERED: NALOXONE HCL 0.4 MG/1 ML VIAL/CARP IV PRN (14:47)
[2024-09-24] MEDS ORDERED: DO NOT ADMINISTER PNEUMOCOCCAL VACCINE PRN (14:47)
[2024-09-24] MEDS ORDERED: SOD PHOSPHATE/SOD BIPHOSPHATE ENEMA 132 ML BTL PR PRN (14:47)
[2024-09-24] MEDS ORDERED: ALUMINUM/MAGNESIUM SUSP 30 ML UDC PO PRN (14:47)
[2024-09-24] MEDS ORDERED: MEDICAL MARIJUANA INH PRN (15:07)
--- NOTE | 2024-09-24 15:23 | Consultation ---
Date of Consultation September 24, 2024 Assessment & Plan (1) Other spondylosis with radiculopathy, lumbar region: Patient is a 69 year old F with a past medical history of HTN, COPD, Dyslipidemia, PAD s/p revascularization, lumbar stenosis with radiculopathy, migraines, PTSD, GERD, chronic antibiotic suppression, Pagets disease, osteoporosis, who consulted for medical management following lumbar decompression and spinal fusion with instrumentation on 09/[address] Mcghee. Patient admitted post-operatively for #1 removal of posterior instrumentation L4-S1; #2 exploration of fusion L4-S1; #3 lumbar decompression with bilateral medial facetectomies and foraminotomies L2-L3 L3-L4; #4 posterior spinal fusion L2-L4; #5 placement posterior instrumentation L2-S1 using Carlin 6 interbody fusion L2-L3 L3-L4.Reports having nausea and 5/10 low back pain post-op; has received Oxy x 1 post-op with some relief. Spondylosis, Lumbar with Radiculopathy: * POD# 0 s/p lumbar decompression with bilateral medial facetectomies and foraminotomies L2-L4; spinal fusion L2-L4; posterior instrumentation to L2-S1 with Dr. Mcghee. 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 Follow- up Echo 08/2024 showing LVEF 60-65% with no significant valvular disease. * On home aspirin- resume 09/25 * Continue home statin DVT Ppx: SCDs Code status: Full PCP: [facility] Dispo: Admit for post-op medical management Patient seen in collaboration with Dr. Mckeon. Please see addendum.I spent a total of 35 minutes coordinating, documenting and providing care for this patient excluding time spent in the performance of separately billed services or time spent by another provider/QHP. (2) Atherogenic dyslipidemia: (3) CAD (coronary artery disease): (4) Low gammaglobulin level: (5) Chronic obstructive pulmonary disease: Supervising Physician Co-Signing Physician Notes Attending addendum: The patient was seen and examined in medical floor She is a status post L4-S1 removal of hardware, L2-L4 decompression and L2-S1 fusion on 09/24/2024 She has minimal pain at the lower back without radiation Denies any other significant symptoms On examination Lying in bed with minimal distress of the back and nausea Hemodynamically stable with blood pressure on the upper side at 149/83 Chestclear to auscultate bilaterally HeartS1, S2 regular Abdomenbenign Extremitiesno edema Her preop labs, imaging studies and EKG reviewed Status post back surgery as mentioned above remains stable and management will be as per orthospine Remains medically stable and will care following her while she is in the hospital Will monitor her labs and electrolytes Agree with assessment and plan as outlined above by ANABEL Jean Baptiste and take the full responsibility of care in the hospital DR Luisana Mckeon History of Present Illness Attending Physician: Flako Mcghee DO History of Present Illness Patient is a 69 year old F with a past medical history of HTN, COPD, Dyslipidemia, PAD s/p revascularization, lumbar stenosis with radiculopathy, migraines, seizures, PTSD, GERD, chronic antibiotic suppression, Pagets disease, osteoporosis, who consulted for medical management following lumbar decompression and spinal fusion with instrumentation on 09/[address] Mcghee. Patient admitted post-operatively for #1 removal of posterior instrumentation L4-S1; #2 exploration of fusion L4-S1; #3 lumbar decompression with bilateral medial facetectomies and foraminotomies L2-L3 L3-L4; #4 posterior spinal fusion L2-L4; #5 placement posterior instrumentation L2-S1 using Carlin 6 interbody fusion L2-L3 L3-L4. Reports having nausea and 5/10 low back pain post-op; has received Oxy x 1 post-op with some relief. Denies fever, chills, numbness and tingling BLE, weight loss,headache, cognitive changes, vision/hearing changes, chest pain, SOB, swelling, difficulty b reathing, urinary concerns, skin rashes, lesions, bleeding, bruising. Patient with h/o cardiac cath 2022 for severe atherosclerosis of aorta with high-grade stenosis at iliac bifurcation, mild-mod ischemia non-obstructive CAD. Follow-up Echo 08/2024 showing LVEF 60-65% with no significant valvular disease. Reportedly, has a history of hypoglycemia occurring randomly. Follows Endo for Paget's disease with no specific treatment for low blood sugar. Patient manages with carb snacks at home. History of seizures not currently managed with anti- epileptics, characterized by brief blinking. Has been several months since last seizure. History obtained primarily from the patient and via hospitalization record. The patient's family was at the bedside and assisted with past medical history. Thank you for this consultation. We will follow the patient with you during their hospital stay. You can reach a member of the [facility] Hospitalist Team 11/10 via [employer]. Allergies Allergy/AdvReac Type Severity Reaction Status Date / Time fentanyl Allergy Unknown per [facility] Verified 09/24/24 10:00 records gabapentin AdvReac Severe can't Verified 09/24/24 10:00 remember details-states had memory loss/confusion budesonide [From Symbicort] AdvReac Intermediate Shakiness Verified 09/24/24 10:00 formoterol [From Symbicort] AdvReac Intermediate Shakiness Verified 09/24/24 10:00 codeine AdvReac Mild Headache Verified 09/24/24 10:00 levofloxacin AdvReac Mild Diffuse Verified 09/24/24 10:00 tendonitis morphine AdvReac Mild Headache, Verified 09/24/24 10:00 vomiting oats AdvReac Mild Headache Verified 09/24/24 10:00 Home Medications Medication Instructions Recorded Confirmed Type bupropion HCl 300 mg 24 hr tablet, 300 mg PO QAM 08/22/18 09/24/24 History extended release famciclovir 250 mg tablet 250 mg PO BID 08/22/18 09/24/24 History loratadine 10 mg capsule 10 mg PO QAM 08/22/18 09/24/24 History lorazepam 0.5 mg tablet 0.5 mg PO TID PRN Anxiety 08/22/18 09/24/24 History methocarbamol 500 mg tablet 500 mg PO TID PRN Muscle Spasm 08/22/18 09/24/24 History multivitamin 1 tab PO QAM 08/22/18 09/24/24 History omeprazole 20 mg tablet,delayed 20 mg PO BID 08/22/18 09/24/24 History release quetiapine 100 mg tablet (Seroquel) 200 mg PO HS 08/22/18 09/24/24 History naloxone 0.4 mg/mL injection 4 mg intranasal DAILY PRN Opiate 04/14/20 09/24/24 History solution Reversal melatonin 3 mg capsule 9 mg PO HS 11/18/22 09/24/24 History cefadroxil 500 mg capsule 500 mg PO QAM 12/03/22 09/24/24 History topiramate 25 mg tablet (Topamax) 25 mg PO HS 12/22/22 09/24/24 History aspirin 81 mg tablet 81 mg PO QAM 02/08/23 09/24/24 History albuterol sulfate 90 mcg/actuation 2 puff inhalation Q6H PRN 03/09/23 09/24/24 History aerosol inhaler Shortness Of Breath oxycodone 5 mg tablet 5 mg PO Q8H PRN pain #9 tabs 07/30/24 09/24/24 Rx Medical Marijuana 1 dose inhalation UD PRN Anxiety 09/04/24 09/24/24 History acetaminophen 325 mg tablet 650 mg PO QID PRN Pain 09/04/24 09/24/24 History atorvastatin 80 mg tablet 80 mg PO HS 09/04/24 09/24/24 History buspirone 30 mg tablet 30 mg PO BID 09/04/24 09/24/24 History lisinopril 20 mg tablet 20 mg PO QAM 09/04/24 09/24/24 History nut.tx.gluc.intol,lac-free,soy 1 ea PO BID 09/04/24 09/24/24 History (Glucerna oral liquid) olodaterol 2.5 mcg/actuation mist 2 inh inhalation QAM 09/04/24 09/24/24 History for inhalation riboflavin (vitamin B2) 100 mg 200 mg PO BID 09/04/24 09/24/24 History capsule rizatriptan 10 mg disintegrating 10 mg PO USEASDIRECTD PRN Migraine 09/04/24 09/24/24 History tablet Headache sertraline 100 mg tablet 50 mg PO QAM 09/04/24 09/24/24 History trazodone 50 mg tablet 50 mg PO HS PRN Sleep 09/04/24 09/24/24 History Patient History Medical History (Updated 09/24/24 @ 11:11 by Flako Mcghee DO) CAD (coronary artery disease) moderate per cardio records History of blood transfusion lynette-operative cholecystectomy Aortoiliac occlusive disease Medical marijuana use prn anxiety Paget's bone disease hip area Osteoporosis Hypoglycemia Hx of cervical cancer (1978) hysterectomy only +uterine cancer Low gammaglobulin level anemia>IGA infusions every 6 weeks November to July (followed by [facility] ? 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, last episode months ago>followed by [place] neurologist Migraine Hypertension controlled, stable per pt Hyperlipidemia Hx of sleep apnea untreated Chronic obstructive pulmonary disease controlled, stable per pt; last albuterol inhaler use several months ago History of infection with vancomycin resistant Enterococcus (VRE) UTI (2015) in [place] > no current issues TBI (traumatic brain injury) + approximately 2020 (after mechanical fall/hit head) - "very forgetful" Abscess Hx lumbar abscess (10+ years ago) 2/2 indwelling hardware, follows with inf ectious disease, chronic lifelong suppressive therapy with cefadroxil rec'd, no acute issues >followed by infectious disease in [place] Dr. Figueroa Cold sore Taking famcyclovir preventatively/no recent issues Chronic back pain LLE radiculopathy Osteoarthritis Hiatal hernia Surgical History History of tonsillectomy History of bunionectomy right History of total replacement of right shoulder joint Peripheral arterial disease with history of revascularization left leg>Dr. Rascon at [facility] History of cardiac cath (2022) [place]-denies any stents History of bronchoscopy History of carpal tunnel surgery right History of tooth extraction History of colonoscopy History of esophagogastroduodenoscopy (EGD) History of arthroscopy Left shoulder arthroscopy (04/30/20): Grade 2 view, MAC 3.0, ETT 7.0 + PNB at [facility] History of open reduction and internal fixation (ORIF) procedure Right ankle Vocal cord polyp Removal History of cholecystectomy History of gastric bypass 2003 H/O abdominoplasty History of hysterectomy Fusion of spine Lumbar x2 Family History Aunt Family history of diabetes mellitus Aunt Family history of diabetes mellitus Mother Family history of diabetes mellitus Myocardial infarction Social History Smoking Status: Former smoker Tobacco Type: Cigarettes Second Hand Exposure: No; Do You Dip or Chew Tobacco: No; Hx Alcohol Use: No Hx Substance Use: No Preferred Language: Bangladeshi Communication Ability: Effective Outboard Motor Inspector Required: No Beliefs That Will Affect Care: None Current Living Situation: Alone Feels Safe at Home: Yes Assistive Devices: Cane, Walker and Wheelchair Review of Systems Review of Systems: All systems reviewed & are unremarkable except as noted in HPI & below Physical Exam Physical Exam: VITALS: Reviewed. WEIGHT/BMI reviewed. GEN: Healthy appearing, well-developed, NAD. PSYCH: Good Judgment. AOx3. Normal memory, mood, and affect. HEENT -Head: NC/AT; -Eyes: PERRL, EOMI. No discharge or redn ess; -Ears: External ears are normal. -Nose: Normal nares. -Mouth and throat: MMM. Normal gums, muc rani, palate,. Good dentition. NECK: Supple, with no masses. CV: RRR, no m/r/g. No peripheral swelling, wearing SCd's LUNGS: CTAB, no w/r/c. Room air with O2 sat 95-96% ABD: Soft, NT/ND, Hypoactive BS, no masses or organomegaly. : Vines intact draining clear yellow urine SKIN: Warm, well perfused. No skin rashes or abnormal lesions. MSK: No deformities, YOUNG independently and without difficulty. Repositioning self in bed. EXT: No clubbing, cyanosis, or edema. NEURO: CNII-XII grossly intact. Normal muscle strength and tone. No focal deficits. No seizure activity. Results & Data Vital Signs (Past 12 Hours) Vital Signs Temp Pulse Pulse Resp BP BP Pulse Ox 09/24/24 15:14 83 16 154/67 H 95 09/24/24 14:48 36.8 C 85 16 121/70 94 09/24/24 14:28 36.2 C L 09/24/24 14:10 74 19 121/81 98 09/24/24 14:00 72 18 141/71 H 100 09/24/24 13:50 73 17 135/58 L 100 09/24/24 13:43 36.1 C L 78 17 145/61 H 100 09/24/24 09:51 37.2 C 64 20 128/65 99 O2 Del Method O2 Flow Rate 09/24/24 15:14 Room Air 09/24/24 14:48 Room Air 09/24/24 14:28 09/24/24 14:10 Room Air 09/24/24 14:00 Oxymask 5 09/24/24 13:50 Oxymask 5 09/24/24 13:43 Oxymask 5 09/24/24 09:51 Room Air Diagnostic Findings Lumbar Spine X-Ray 09/24/24 10:55 FL lumbar spine 2-3V CLINICAL HISTORY: L4-S1 HW REMOVAL L2-L4 DECOMP L2-S1 FUSION COMPARISON STUDY: Radiographs 07/30/2024 FLUOROSCOPY TIME: 18.5 seconds FLUOROSCOPY IMAGES: 2 EXPOSURE DOSE: 8.01 mGy FINDINGS: Multilevel discectomy with posterior interbody allie and screw fusion hardware is noted throughout the lumbosacral spine which appears to extend from L2-S1 with removal of the L5 screws. No unexpected opaque foreign bodies. Note that the images were submitted following completion of the surgery. The hardware appears intact. IMPRESSION: Fluoroscopic assistance as above. ACT 112: Negative or not required by law. Electronically signed by: Omkar Brown M.D. 09/24/2024 2:15 PM
[2024-09-24] MEDS: ONDANSETRON 4 MG OD TAB PO PRN (16:27)
[2024-09-24] MEDS: BACLOFEN 10 MG TAB PO PRN (16:53)
[2024-09-24] MEDS: HYDROmorphone INJ 0.5 MG/0.5 ML SYR IV PRN (18:30)
[2024-09-24] MEDS: TOPIRAMATE 25 MG TAB PO SCH (21:00)
[2024-09-24] MEDS ORDERED: RIBOFLAVIN 100 MG PO SCH (21:00)
[2024-09-24] MEDS: ATORVASTATIN 40 MG TAB PO SCH (21:01)
[2024-09-24] MEDS: MELATONIN 3 MG TAB PO SCH (21:01)
[2024-09-24] MEDS: busPIRone 15 MG TAB PO SCH (21:01)
[2024-09-24] MEDS: DOCUSATE SODIUM/SENNA 50/8.6MG TAB PO SCH (21:03)
[2024-09-25] MEDS: POLYETHYLENE (MIRALAX) 17 GM PACK PO SCH (05:54)
[2024-09-25] MEDS: General Order Problem(s) SCH (07:09)
[2024-09-25] MEDS: dexAMETHasone 4 MG in SYRINGE 0 ML IV SCH (07:28)
--- NOTE | 2024-09-25 08:04 | Orthopedic Progress Note ---
Date of Service September 25, 2024 Assessment & Plan (1) Other spondylosis with radiculopathy, lumbar region: Plan: At this point we will initiate physical therapy monitor her CINDY operatively discharge home in the next few days. Admission and Anticipated Discharge Date Admission Date: September 24, 2024 Subjective Patient's back pain is controlled leg symptoms improved Physical Exam Physical Exam: Patient is currently in bed. She is comfortable. Good strength testing. Results & Data Vital Signs (Past 12 Hours) Vital Signs Temp Pulse Resp BP Pulse Ox O2 Del Method 09/25/24 07:36 36.9 C 67 16 152/64 H 97 Room Air 09/25/24 04:50 37.5 C 72 14 121/66 97 Room Air 09/25/24 00:50 37.0 C 65 14 116/61 98 Room Air 09/24/24 20:41 37.1 C 60 14 143/67 H 98 Room Air 09/24/24 20:30 Room Air
[2024-09-25] MEDS: OLODATEROL HCL 2.5MCG/ACTUATION 60 PUFFS/INHALER INH SCH (08:55)
[2024-09-25] MEDS: LORATADINE 10 MG TAB PO SCH (08:56)
[2024-09-25] MEDS: SERTRALINE HCL 50 MG TABLET PO SCH (08:56)
[2024-09-25] MEDS: MULTIVITAMIN TAB PO SCH (08:56)
[2024-09-25] MEDS: ASPIRIN 81 MG ECTAB PO SCH (08:57)
[2024-09-25 08:58] LABS: Hematocrit (blood only) 30.7 % (37.0-47.0); Hemoglobin 10.3 g/dl (12.0-16.0); Immature Granulocytes # (auto) 0.03 K/uL (0.01-0.20); Immature Granulocytes % (auto) 0.3 %; Mean Corpuscular Hemoglobin 30.4 pg (25.0-34.0); Mean Corpuscular Volume 90.6 fL (80.0-100.0); Platelet Count 178 K/uL (130-400); RDW Standard Deviation 42.3 fL (36.4-46.3); Red Blood Count 3.39 M/uL (4.20-5.40); White Blood Count 8.68 K/ul (4.8-10.8)
[2024-09-25 09:15] LABS: Anion Gap 3.0 (3-11); Blood Urea Nitrogen 14.0 mg/dl (6-23); Calcium 8.1 mg/dl (8.6-10.3); Carbon Dioxide 28.0 mmol/L (21-32); Chloride 107.0 mmol/L (98-107); Creatinine Clr Calc Pharmacy 31.2 ml/min; Glucose 111.0 mg/dl (70-99(Fasting)); Potassium 4.3 mmol/L (3.5-5.1); Sodium 138.0 mmol/L (136-145)
--- NOTE | 2024-09-25 10:52 | Hospitalist Progress Note ---
Date of Service September 25, 2024 Assessment & Plan (1) Other spondylosis with radiculopathy, lumbar region: Plan: 69 year old woman with a past medical history of HTN, COPD, Dyslipidemia, PAD s/p revascularization, lumbar stenosis with radiculopathy, migraines, PTSD, GERD, chronic antibiotic suppression, Pagets disease, osteoporosis, who consulted for medical management following lumbar decompression and spinal fusion with instrumentation on 09/[address] Mcghee. Spondylosis, Lumbar with Radiculopathy: POD# 1 s/p lumbar decompression with bilateral medial facetectomies and foraminotomies L2-L4; spinal fusion L2-L4; posterior instrumentation to L2-S1 with Dr. Mcghee. Hb is 10.3 today. 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 No exacerbation History of CPAP, weaned following weight loss Dyslipidemia CAD H/o cardiac cath 2022 for severe atherosclerosis of aorta with high-grade stenosis at iliac bifurcation, mild-mod ischemia non-obstructive CAD. Follow-up Echo 08/2024 showing LVEF 60-65% with no significant valvular disease. Continue home aspirin and atorvastatin DVT Ppx: SCDs Code status: Full PCP: [place] [facility] I spent a total of 50 minutes coordinating, documenting and providing care for this patient excluding time spent in performance of separately billed services (2) Atherogenic dyslipidemia: (3) CAD (coronary artery disease): (4) Low gammaglobulin level: (5) Chronic obstructive pulmonary disease: Admission and Anticipated Discharge Date Admission Date: September 24, 2024 Subjective Patient seen and examined Reports radiculopathic pain has resolved since surgery Currently having surgical site pain Dressing stained with serosanguinous drainage Denied any other complaints on ROS Yet to have a BM but passing flatus Physical Exam Constitutional: + well hydrated; no acute distress Eyes: PERRL, conjunctivae normal, anicteric sclerae ENMT: external ear and nose normal, oropharynx normal Respiratory: normal respiratory effort, lungs clear to auscultation Cardiovascular: Rate/Rhythm: regular rate and regular rhythm Gastrointestinal (Abdomen): normal bowel sounds, soft, nontender, no hepatosplenomegaly Musculoskeletal: Dressing over lower back with serosanguinous stain. Drain in situ Neurologic: PERRL, EOMI, accommodation nl, no face palsy, no dysarthria Psychiatric: A+Ox3, euthymic affect Results & Data Results & Data Vital Signs (Past 12 Hours) Vital Signs Temp Pulse Resp BP Pulse Ox O2 Del Method 09/25/24 07:36 36.9 C 67 16 152/64 H 97 Room Air 09/25/24 04:50 37.5 C 72 14 121/66 97 Room Air 09/25/24 00:50 37.0 C 65 14 116/61 98 Room Air Laboratory Results Abnormal lab results 09/25/24 Range/Units 08:22 RBC 3.39 L (4.20-5.40) M/uL Hgb 10.3 L (12.0-16.0) g/dl Hct 30.7 L (37.0-47.0) % Neut # (Auto) 6.69 H (1.40-6.50) K/uL Lymph # (Auto) 1.09 L (1.20-3.40) K/uL Edwards # (Auto) 0.82 H (0.11-0.59) K/uL Creatinine 1.22 H (0.6-1.2) mg/dl Glucose 111 H (70-99(Fasting)) mg/dl Calcium 8.1 L (8.6-10.3) mg/dl
[2024-09-26 06:36] LABS: Hematocrit (blood only) 30.6 % (37.0-47.0); Hemoglobin 10.2 g/dl (12.0-16.0); Mean Corpuscular Hemoglobin 29.8 pg (25.0-34.0); Mean Corpuscular Volume 89.5 fL (80.0-100.0); Platelet Count 175 K/uL (130-400); RDW Standard Deviation 42.6 fL (36.4-46.3); Red Blood Count 3.42 M/uL (4.20-5.40); White Blood Count 6.60 K/ul (4.8-10.8)
[2024-09-26] MEDS: HYDROmorphone INJ 1 MG/ML SYRINGE IV PRN (06:45)
[2024-09-26 06:52] LABS: Anion Gap 4.0 (3-11); Blood Urea Nitrogen 16.0 mg/dl (6-23); Calcium 8.8 mg/dl (8.6-10.3); Carbon Dioxide 29.0 mmol/L (21-32); Chloride 107.0 mmol/L (98-107); Creatinine Clr Calc Pharmacy 33.7 ml/min; Glucose 106.0 mg/dl (70-99(Fasting)); Potassium 4.3 mmol/L (3.5-5.1); Sodium 140.0 mmol/L (136-145)
[2024-09-26] MEDS: ONDANSETRON INJ 2 MG/ML 2 ML VIAL IV PRN (09:58)
--- NOTE | 2024-09-26 10:22 | Orthopedic Progress Note ---
Date of Service September 26, 2024 Assessment & Plan (1) Other spondylosis with radiculopathy, lumbar region: Plan: At this time continue physical therapy monitor her CINDY output anticipate discharge home tomorrow. Admission and Anticipated Discharge Date Admission Date: September 24, 2024 Subjective Back pain is controlled leg symptoms improved. Tolerating physical therapy. Physical Exam Physical Exam: Patient is currently in bed. Discussed when to testing. Appears comfortable. Results & Data Vital Signs (Past 12 Hours) Vital Signs Temp Pulse Pulse Resp BP Pulse Ox O2 Del Method 09/26/24 07:40 36.8 C 69 16 126/65 97 Room Air 09/26/24 02:00 36.9 C 64 16 134/64 97 Room Air
[2024-09-26] MEDS: FAMCICLOVIR 250 MG PO STA (11:36)
[2024-09-26] MEDS: PROMETHAZINE 12.5 MG/50.5 ML BAG IV PRN (12:05)
--- NOTE | 2024-09-26 15:08 | Hospitalist Progress Note ---
Date of Service September 26, 2024 Assessment & Plan (1) Other spondylosis with radiculopathy, lumbar region: Plan: 69 year old woman with a past medi-c-a-l- -b-g-y-t-o-r-y- -o-f- -H-T-N-,- -C-O-P-D-,- -N-j-b-h-i-g-b-o-t-m-i-a-,- -P-A-D- -s-/-p- -n-m-t-o-i-b-g-e-f-f-k-p-a-t-i-o-n-,- -l-w-c-b-a-r- -z-v-c-n-o-s-i-s- -w-i-t-h- -h-n-u-b-f-h-x-w-v-a-t-h-y-,- -m-i--u-f-y-i-n-e-s-,- -P-T-S-D-,- -G-E-R-D-,- -h-h-w-o-n-i-c- -o-x-n-u-r-q-o-t-i-c- -y-e-y-h-c-l-s-s-i-o-n-,- -U-m-e-e-t--s- -l-z-m-e-a-s-e-,- -o-j-x-w-s-d-u-y-p-s-i-s-,- - - w admitted for lumbar decompression and spinal fusion with instrumentation on 09/[address] Mcghee. Spondylosis, Lumbar with Radiculopathy: POD# 2 s/p lumbar decompression with bilateral medial facetectomies and foraminotomies L2-L4; spinal fusion L2-L4; posterior instrumentation to L2-S1 with Dr. Mcghee. 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 No exacerbation History of CPAP, weaned following weight loss Dyslipidemia CAD H/o cardiac cath 2022 for severe atherosclerosis of aorta with high-grade stenosis at iliac bifurcation, mild-mod ischemia non-obstructive CAD. Follow-up Echo 08/2024 showing LVEF 60-65% with no significant valvular disease. Continue home aspirin and atorvastatin DVT Ppx: SCDs Code status: Full PCP: [place] [facility] I spent a total of 51 minutes coordinating, documenting and providing care for this patient excluding time spent in performance of separately billed services (2) Atherogenic dyslipidemia: (3) CAD (coronary artery disease): (4) Low gammaglobulin level: (5) Chronic obstructive pulmonary disease: Admission and Anticipated Discharge Date Admission Date: September 24, 2024 Subjective Patient seen and examined earlier this a.m. Chart, vital sign and data reviewed. She states her incisional pain has improved. She is tolerating physical therapy. She denies chest pain or shortness of breath. She denies nausea, vomiting or diarrhea. Her appetite is good. She slept well. Physical Exam Physical Exam: General- adult elderly female seen at bedside. Chronic ill appearance. Head- atraumatic Eyes- PERRL, EOMI, anicteric ENT- oropharynx clear Neck- supple, no JVD, no adenopathy, no thyromegaly; Lungs- clear to auscultation and percussion Heart- regular rhythm; no murmur, no gallop, no rub appreciated Abdomen- normal bowel sounds, soft, nontender, no masses or hepatosplenomegaly Extremities- no pretibial edema, no calf tenderness; peripheral pulses intact Neuro- alert, oriented x 3; PERRL, EOMI; no facial palsy; no dysarthria; motor 5/5 bilaterally; good sensation in toes bilateral Skin- warm & dry Results & Data Results & Data Vital Signs (Past 12 Hours) Vital Signs Temp Pulse Resp BP Pulse Ox O2 Del Method 09/26/24 14:25 37.1 C 71 16 133/67 98 Room Air 09/26/24 07:40 36.8 C 69 16 126/65 97 Room Air
[2024-09-26] MEDS: RIZATRIPTAN BENZOATE 10 MG TAB PO PRN (16:08)
[2024-09-26] MEDS: FAMCICLOVIR 250 MG PO SCH (21:04)
[2024-09-27 05:04] VITALS: RESP 18; O2SAT 96
[2024-09-27 07:54] VITALS: BP 152/65; PULSE 74; TEMP 97.9
--- NOTE | 2024-09-27 10:33 | Discharge Summary ---
Date of Service September 27, 2024 Admission HPI Per Admitting Provider This is a 69-year-old female that presents with persistent back and leg pain after failing since course of nonoperative care is here for surgical intervention. Principal Diagnosis Lumbar spondylosis with radiculopathy Discharge Data Allergies Allergy/AdvReac Type Severity Reaction Status Date / Time fentanyl Allergy Unknown per [facility] Verified 09/24/24 10:00 records gabapentin AdvReac Severe can't Verified 09/24/24 10:00 remember details-states had memory loss/confusion budesonide [From Symbicort] AdvReac Intermediate Shakiness Verified 09/24/24 10:00 formoterol [From Symbicort] AdvReac Intermediate Shakiness Verified 09/24/24 10:00 codeine AdvReac Mild Headache Verified 09/24/24 10:00 levofloxacin AdvReac Mild Diffuse Verified 09/24/24 10:00 tendonitis morphine AdvReac Mild Headache, Verified 09/24/24 10:00 vomiting oats AdvReac Mild Headache Verified 09/24/24 10:00 Consultations 09/24/24 14:47 Consult Hospitalist Routine Procedures Performed Operation Date: 09/24/24 10:55 Actual Procedures p L2-L4 Decompression, L2-S1 Fusion(Not Applicable) - Flako Mcghee DO s L4-S1 Removal Hardware,(Not Applicable) - Flako Mcghee DO Ordered Studies 09/24/24 10:55 FL lumbar spine 2-3V Routine Hospital Course (1) Other spondylosis with radiculopathy, lumbar region: Please underwent multilevel lumbar compression fusion tolerated this well was taken to orthopedic for postoperative. Postop is progressed appropriate. Leg symptoms improved. Strength improving. CNIDY drain decreasing appropriately. Pain controlled. Subsidy discharged home. Discharge orders instructions from the chart for further review. Total Time Total Time Spent Total Time Spent (In Minutes): 20 minutes Discharge Plan Discharge Items Patient Disposition: Home - Self-Care Reason For Visit: Two-Level Lumbosacral Spondylosis with Radiculopat Discharge Diagnosis: Lumbar spondylosis with radiculopathy Activity: As commented below Non-emergency contact: Primary Care Provider Call non-emergency contact if: you have any medication questions Follow-up/Referrals: Portillo Durham MD [Primary Care Provider] - Diet: Regular Addtl Attending Provider Instructions: ACTIVITY RECOMMENDATIONS: SELF CARE INSTRUCTIONS AFTER THORACIC/LUMBAR FUSIONS 1. You may walk to your tolerance. It is good exercise for your legs and back. Expect some back and intermittent leg aches and pains. 2. You may perform "counter-top" level activities (make a sandwich, lali with a project, etc.). 3. No bending or lifting of more than 10 pounds or back twisting of any nature (roll like a log when turning in bed). 4. You may ride in a car for 20-30 minutes at a time. No driving until after your first visit with your doctor. 5. Frequent changes of position and restricting sitting to 30 minutes at a time will help limit the amount of back spasms and stiffness you may experience. 6. You may discontinue the use of ambulatory aids (cane, crutches, etc.) once your strength and confidence allow. 7. You may inspector production plastic parts the shower and let water strike your incision when you arrive home at least once daily. Do not take a tub bath, sit in a hot tub or go into a swimming pool until after your first recheck in the office. 8. You may resume previous diet. SPECIAL CARE INSTRUCTIONS: VERY IMPORTANT TO READ AND REVIEW A. Your surgical incision has been closed with a cosmetic suture under the skin that will dissolve in about 6 weeks. In 14 days, you can use a pair of clean scissors and cut the suture that is left outside of the skin at the ends of your incision. 1. The small skin tapes can be removed 7 days after surgery if they have not fallen off by that point. 2. You may keep the wound open to air as much as possible to promote healing after post-op day number 5 unless told otherwise by your doctor. 3. If you think the wound looks like it is becoming infected (redness or worsening drainage) and/or you are experiencing fever, chill or worsening back pain and muscle spasms, contact the office so that we may evaluate you as soon as possible. B. Complications are uncommon, but please contact us if you have any signs or symptoms of: 1. wound infection (fever higher than 102.5 degrees F, redness, separation of wound, drainage, or increasing pain from the incision) 2. blood clots in legs (pain, swelling, redness and warmth in legs) 3. urinary tract infection (fever higher than 102.5 degrees F, burning upon urination or increased frequency of urination) 4. nerve problems (inability to walk on your toes or heels, numbness, loss of bowel or bladder control) 5. any other symptoms that concern you C. Please call the office at if you have any concerns or questions about your operation or recovery. D. No smoking! Smoking drastically decreases the chance of a solid fusion. E. Do not take any anti-inflammatory medications (Indocin, Advil, Motrin, Aspirin, Naprosyn, etc.) as these may inhibit the chance of a solid fusion. Tylenol is okay to take for pain. MANAGING PAIN AFTER SPINAL SURGERY 1. Narcotic medication is intended for short-term use and will be provided for surgical pain. Surgical pain usually lasts for a period of 4-6 weeks. Narcotic medication includes Percocet, Vicodin, Darvocet, Tylenol #3 or Lortab. 2. Longer-term pain is more appropriately treated with non-narcotic medication such as Tylenol ES. 3. Muscle spasm is not appropriately treated with narcotics. Muscle relaxers such as Soma, Flexeril or Skelaxin can be used along with Tylenol ES. 4. Remember that we all live with some "aches and pains". This is not unusual or uncommon after an injury or as we get older. a. Back pain is expected and may include muscle spasms for 4 to 6 weeks after surgery. The pain should gradually improve. If the pain worsens for no apparent reason, please contact the office. b. Intermittent leg pain may also be experienced and should not be concerned about unless it worsens for no apparent reason. If so, please contact the office. 5. We will provide appropriate medication within the normal guidelines of their prescribed use. We will also be very cautious and aware of potential abuse and extended duration of patients' medication needs. a. Pain medications are for your comfort and to assist with sleep and rest so that the tissue can heal. They are not provided in order to return to normal activity and should not be used through the day. To do so or worsening pain at night can result from ongoing tissue damage and development of tolerance to the prescribed medicine. 6. Please allow 2-3 days to process refills. Prescriptions will not be mailed but must be picked up at the office. FOLLOW UP VISIT: Keep your scheduled follow-up appointment. Any questions, please call the office at . Pending Studies at Discharge: No Stand-Alone Forms: [facility], Smoking Cessation Medications and DC Order Prescriptions: New oxycodone 5 mg tablet 5 mg PO Q6H PRN (Reason: pain) Qty: 30 0RF Continued albuterol sulfate 90 mcg/actuation HFA aerosol inhaler 2 puff inhalation Q6H PRN (Reason: Shortness Of Breath) cefadroxil 500 mg capsule 500 mg PO QAM bupropion HCl 300 mg Tablet Extended Release 24 Hr 300 mg PO QAM multivitamin Tablet 1 tab PO QAM methocarbamol 500 mg Tablet 500 mg PO TID PRN (Reason: Muscle Spasm) famciclovir 250 mg Tablet 250 mg PO BID lorazepam 0.5 mg Tablet 0.5 mg PO TID PRN (Reason: Anxiety) loratadine 10 mg Capsule 10 mg PO QAM quetiapine [Seroquel] 100 mg Tablet 200 mg PO HS omeprazole 20 mg Tablet,Delayed Release (Dr/Ec) 20 mg PO BID naloxone 0.4 mg/mL Solution 4 mg intranasal DAILY PRN (Reason: Opiate Reversal) aspirin 81 mg Tablet 81 mg PO QAM melatonin 3 mg Capsule 9 mg PO HS topiramate [Topamax] 25 mg Tablet 25 mg PO HS oxycodone 5 mg tablet 5 mg PO Q8H PRN (Reason: pain) Qty: 9 0RF atorvastatin 80 mg Tablet 80 mg PO HS acetaminophen 325 mg Tablet 650 mg PO QID PRN (Reason: Pain) trazodone 50 mg Tablet 50 mg PO HS PRN (Reason: Sleep) lisinopril 20 mg Tablet 20 mg PO QAM sertraline 100 mg Tablet 50 mg PO QAM rizatriptan 10 mg Tablet,Disintegrating 10 mg PO USEASDIRECTD PRN (Reason: Migraine Headache) Rx Instructions: take 1 tab at onset of headache; if no relief may repeat 1 tab after at least 2 hrs; max = 3 tabs/24 hr buspirone 30 mg Tablet 30 mg PO BID Glucerna Liquid 1 ea PO BID olodaterol 2.5 mcg/actuation Mist 2 inh INHALATION QAM riboflavin (vitamin B2) 100 mg Capsule 200 mg PO BID Medical Marijuana 1 dose inhalation UD PRN (Reason: Anxiety) Discharge Orders: Discharge Order (Routine); Ordered 09/27/24 Ordered By: Flaok Mcghee Admission Data Admit Date/Time: 09/24/24 13:31 Attending Provider: Flako Mcghee Admit Provider: Flako Mcghee Primary Care Provider: Portillo Durham Other Providers: [facility]; Betzaida Panchal
--- NOTE | 2024-09-27 16:17 | Hospitalist Progress Note ---
Date of Service September 27, 2024 Assessment & Plan (1) Other spondylosis with radiculopathy, lumbar region: Plan: 69 year old woman with a past medi-c-a-l- -a-s-g-t-o-r-y- -o-f- -H-T-N-,- -C-O-P-D-,- -A-y-d-x-i-y-l-p-e-m-i-a-,- -P-A-D- -s-/-p- -x-v-m-m-q-r-t-e-s-d-s-x-a-t-i-o-n-,- -p-i-a-b-a-r- -v-h-r-n-o-s-i-s- -w-i-t-h- -t-g-a-k-x-t-b-x-e-a-t-h-y-,- -m--s-w-h-a-i-n-e-s-,- -P-T-S-D-,- -G-E-R-D-,- -e-b-c-o-n-i-c- -h-x-d-d-v-v-o-t-i-c- -u-w-n-f-a-e-s-s-i-o-n-,- -N-d-e-e-t--s- -x-m-h-e-a-s-e-,- -l-b-u-m-r-y-p-l-r-s-i-s-,- - - w admitted for lumbar decompression and spinal fusion with instrumentation on 09/[address] Mcghee. Spondylosis, Lumbar with Radiculopathy: Stable POD# 3 s/p lumbar decompression with bilateral medial facetectomies and foraminotomies L2-L4; spinal fusion L2-L4; posterior instrumentation to L2-S1 with Dr. Mcghee. 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 No exacerbation History of CPAP, weaned following weight loss Dyslipidemia CAD H/o cardiac cath 2022 for severe atherosclerosis of aorta with high-grade stenosis at iliac bifurcation, mild-mod ischemia non-obstructive CAD. Follow-up Echo 08/2024 showing LVEF 60-65% with no significant valvular disease. Continue home aspirin and atorvastatin DVT Ppx: SCDs Code status: Full PCP: [facility] Patient is stable for discharge from medical standpoint (2) Atherogenic dyslipidemia: (3) CAD (coronary artery disease): (4) Low gammaglobulin level: (5) Chronic obstructive pulmonary disease: Admission and Anticipated Discharge Date Admission Date: September 24, 2024 Subjective Patient seen and examined earlier this a.m. Chart, vital signs and data reviewed. Her pain is under good control. she is tolerating physical therapy. She denies chest pain or shortness of breath. She denies nausea, vomiting or diarrhea. Her appetite is good. She slept well. Physical Exam Physical Exam: General- adult elderly female seen at bedside Head- atraumatic Eyes- PERRL, EOMI, anicteric ENT- oropharynx clear Neck- supple, no JVD, Lungs- clear to auscultation and percussion Heart- regular rhythm; no murmur, no gallop, no rub appreciated Abdomen- normal bowel sounds, soft, nontender, no masses or hepatosplenomegaly Extremities- no pretibial edema, no calf tenderness; peripheral pulses intact Neuro- alert, oriented x 3; moves all extremities equally, no focal deficits Skin- warm & dry Results & Data Results & Data Vital Signs (Past 12 Hours) Vital Signs Temp Pulse Pulse Resp BP BP Pulse Ox 09/27/24 07:54 36.6 C 74 18 152/65 H 96 09/27/24 05:00 36.8 C 72 18 158/82 H 96 O2 Del Method 09/27/24 07:54 Room Air 09/27/24 05:00 Room Air Diagnostic Findings Laboratory Results WBC 6.60 K/ul (4.8-10.8) 09/26/24 06:03 RBC 3.42 M/uL (4.20-5.40) L 09/26/24 06:03 Hgb 10.2 g/dl (12.0-16.0) L 09/26/24 06:03 Hct 30.6 % (37.0-47.0) L 09/26/24 06:03 MCV 89.5 fL (80.0-100.0) 09/26/24 06:03 MCH 29.8 pg (25.0-34.0) 09/26/24 06:03 MCHC 33.3 g/dL (32.0-36.0) 09/26/24 06:03 RDW Std Deviation 42.6 fL (36.4-46.3) 09/26/24 06:03 RDW Coeff of Cha 13.0 % (11.5-14.5) 09/26/24 06:03 Plt Count 175 K/uL (130-400) 09/26/24 06:03 MPV 10.9 fL (9.4-12.4) 09/26/24 06:03 Immature Gran % (Auto) 0.3 % 09/25/24 08:22 Neut % (Auto) 77.2 % 09/25/24 08:22 Lymph % (Auto) 12.6 % 09/25/24 08:22 [place] % (Auto) 9.4 % 09/25/24 08:22 Eos % (Auto) 0.3 % 09/25/24 08:22 Baso % (Auto) 0.2 % 09/25/24 08:22 Neut # (Auto) 6.69 K/uL (1.40-6.50) H 09/25/24 08:22 Lymph # (Auto) 1.09 K/uL (1.20-3.40) L 09/25/24 08:22 [place] # (Auto) 0.82 K/uL (0.11-0.59) H 09/25/24 08:22 Eos # (Auto) 0.03 K/uL (0.00-0.50) 09/25/24 08:22 Baso # (Auto) 0.02 K/uL (0.00-0.20) 09/25/24 08:22 Immature Gran # (Auto) 0.03 K/uL (0.01-0.20) 09/25/24 08:22 Sodium 140 mmol/L (136-145) 09/26/24 06:03 Potassium 4.3 mmol/L (3.5-5.1) 09/26/24 06:03 Chloride 107 mmol/L (98-107) 09/26/24 06:03 Carbon Dioxide 29 mmol/L (21-32) 09/26/24 06:03 Anion Gap 4 (3-11) 09/26/24 06:03 BUN 16 mg/dl (6-23) 09/26/24 06:03 Creatinine 1.13 mg/dl (0.6-1.2) 09/26/24 06:03 Est Cr Clr Drug Dosing 33.7 ml/min 09/26/24 06:03 eGFR 52.01 09/26/24 06:03 BUN/Creatinine Ratio 14.2 (10-20) 09/26/24 06:03 Glucose 106 mg/dl (70-99(Fasting)) H 09/26/24 06:03 POC Glucose 133 mg/dl (70-99) H 09/26/24 16:20 Calcium 8.8 mg/dl (8.6-10.3) 09/26/24 06:03 Blood Type A Negative 09/24/24 09:49 Antibody Screen NEGATIVE 09/24/24 09:49 Crossmatch See Detail 09/24/24 09:49 Impressions Lumbar Spine X-Ray 09/24/24 10:55 FL lumbar spine 2-3V CLINICAL HISTORY: L4-S1 HW REMOVAL L2-L4 DECOMP L2-S1 FUSION COMPARISON STUDY: Radiographs 07/30/2024 FLUOROSCOPY TIME: 18.5 seconds FLUOROSCOPY IMAGES: 2 EXPOSURE DOSE: 8.01 mGy FINDINGS: Multilevel discectomy with posterior interbody allie and screw fusion h ardware is noted throughout the lumbosacral spine which appears to extend from L2-S1 with removal of the L5 screws. No unexpected opaque foreign bodies. Note that the images were submitted following completion of the surgery. The hardware appears intact. IMPRESSION: Fluoroscopic assistance as above. ACT 112: Negative or not required by law. Electronically signed by: Omkar Brown M.D. 09/24/2024 2:15 PM
== END 2024-09-27 12:54 | disposition home health service (06) | DRG 427 ==
LOC: ASU 09:40 → 3W 13:31